=== PATIENT | male | born 1935 | race Caucasian/White ===

== ENCOUNTER → 2018-07-06 10:05 | Outpatient (CLI) | payer OTHER, SELFPAY ==
[2018-07-06 11:31] LABS: BUN Creatinine Ratio 18.2 (6-22); Blood Urea Nitrogen 20 mg/dL (9-20); Calcium 8.4 mg/dL (8.4-10.2); Carbon Dioxide 31 mmol/L (22-32); Chloride 99 mmol/L (98-107); Estimated Glomerular Filt Rate > 60.0 mL/min (>60); Glucose 104 mg/dL (80-110); HEMOLYSIS < 15 (0-50); Sodium 137 mmol/L (137-145)
== END ==
PROVIDERS: PCP Internal Medicine; Visit Provider Internal Medicine
DX: I10 Essential (primary) hypertension (principal)
CPT/HCPCS: 36415; 80048

== ENCOUNTER → 2018-07-19 17:10 | Outpatient (CLI) | payer OTHER, SELFPAY | PROVIDERS: PCP Internal Medicine; Visit Provider Physician Assistant | DX: R52 Pain, unspecified (principal) | CPT/HCPCS: 87086 ==

== ENCOUNTER 2018-07-19 17:36 | Observation (INO) | payer OTHER, SELFPAY ==
[2018-07-19 18:29] VITALS: BP 118/67; PULSE 62; RESP 22; TEMP 36.8; O2SAT 88; BMI 30.2
--- NOTE | 2018-07-19 18:33 | DI.RAD.S_ITS ---
PROCEDURE: XR CHEST 1V INDICATIONS: suspected sepsis TECHNIQUE: One view of the chest was acquired. COMPARISON: [facility], CHEST 1 VIEW, 01/19/2018, 15:28. [facility], CHEST 1 VIEW, 01/23/2018, 13:41. FINDINGS: Surgical changes and devices: There is a cardiac pacemaker in expected position. The most superior is no wire is fractured, but unchanged. Lungs and pleura: Chronic interstitial eminence bilaterally, unchanged. No pleural effusions or pneumothorax. Lungs are clear. Mediastinum: Mediastinal contours appear normal. Heart size is mildly increased. Bones and chest wall: No suspicious bony lesions. Overlying soft tissues appear unremarkable. Multiple compression fractures in lower thoracic spine with Vertebroplasties. IMPRESSION: 1. Chronic interstitial prominence appears unchanged. No focal consolidation or pleural effusion. Dictated by: Joyce Mosqueda M.D. on 07/19/2018 at 18:53 Approved by: Joyce Mosqueda M.D. on 07/19/2018 at 18:54
--- NOTE | 2018-07-19 18:38 | ED_ITS ---
HPI - Abdominal Pain General Chief Complaint: Abdominal Pain Stated Complaint: SENT BY WALK IN TO RULL OUT SEPSIS Time Seen by Provider: 07/19/18 18:38 Source: patient Mode of arrival: ambulatory Limitations: no limitations History of Present Illness MD complaint: abdominal pain Onset (ago): day(s) (1) Pain Consistency: constant Location: diffuse Severity: moderate Quality: cramping Radiation: none Migration to: no migration Relieving factors: nothing Exacerbating factors: nothing Context: other Associated symptoms: nausea and other Related Data Home Medications Medication Instructions Recorded Confirmed silodosin [Rapaflo] 4 mg PO HS #0 12/04/11 07/19/18 morphine [MS Contin] 30 mg PO BID #0 09/23/16 07/19/18 hydrocodone-acetaminophen [Granby] 1 - 2 tab PO Q4HP PRN #0 01/15/17 07/19/18 quetiapine 12.5 - 25 mg PO HS #0 01/18/18 07/19/18 albuterol sulfate [Ventolin HFA] 2 puff INH Q6HP PRN #0 01/19/18 07/19/18 aspirin 81 mg PO QDAY #0 01/19/18 07/19/18 potassium chloride 10 meq PO QDAY #0 01/19/18 07/19/18 carvedilol 6.25 mg PO BID 07/19/18 07/19/18 donepezil 10 mg PO BEDTIME 07/19/18 07/19/18 torsemide 20 mg tablet 20 mg PO DAILY 07/19/18 07/19/18 Previous Rx's Medication Instructions Recorded omeprazole 20 mg PO BID #60 09/28/11 nitroglycerin [Nitrostat] 0.4 mg SUBLINGUAL PRN #1 06/02/13 albuterol sulfate 3 ml INH Q2HP PRN #120 packet 01/24/18 prednisone 60 mg PO QDAY #100 tab 01/24/18 Allergies Allergy/AdvReac Type Severity Reaction Status Date / Time diclofenac [DICLOFENAC] Allergy Severe gi bleed Verified 07/19/18 19:16 lovastatin [LOVASTATIN] Allergy Severe HIVES AND Verified 07/19/18 19:16 FEVER terazosin [TERAZOSIN] Allergy Severe low blood Verified 07/19/18 19:16 pressure atorvastatin [ATORVASTATIN] Allergy Unknown Verified 07/19/18 19:16 rosuvastatin [ROSUVASTATIN] Allergy Unknown Verified 07/19/18 19:16 Review of Systems Review of Systems All systems reviewed & are unremarkable except as noted in HPI and below Constitutional Denies chills, Denies fever(s), Denies lethargy and Denies weakness Eyes Denies change in vision, Denies eye discharge, Denies irritation and Denies loss of vision ENT Ears, Nose, Mouth, and Throat: Denies change in voice, Denies neck pain and Denies sore throat Cardiovascular Denies chest pain, Denies irregular heart rhythm, Denies lightheadedness, Denies palpitations, Denies dyspnea, Denies dyspnea on exertion and Denies orthopnea Respiratory Denies cough, Denies dyspnea, Denies dyspnea on exertion and Denies wheezing Gastrointestinal Gastrointestinal: Reports abdominal pain, Denies change in bowel habits, Denies diarrhea, Reports nausea and Denies vomiting Genitourinary Denies hematuria, Denies flank pain, Denies urinary incontinence and Denies urinary urgency Musculoskeletal Denies neck pain Integumentary/Breasts Denies pruritus, Denies erythema, Denies rash and Denies wounds Neurologic Denies confusion, Denies loss of vision and Denies weakness Psychiatric Denies anxiety, Denies confusion, Denies depression, Denies homicidal ideation and Denies suicidal ideation Endocrine Denies palpitations Hematologic/Lymphatic Denies easy bruising Allergic/Immunologic Denies wheezing [facility] Medical History Pancreatitis, acute (Acute) Compression fracture of thoracic vertebra (Acute) Intractable back pain (Acute) COPD (chronic obstructive pulmonary disease) (Acute) Abdominal pain (Acute) Pneumonia (Acute) CHF (congestive heart failure) (Acute) Respiratory failure with hypoxia (Acute) Surgical History No pertinent past surgical history (Acute) Social History household members: spouse Smoking Status: Former smoker Exam Initial Vital Signs Initial Vital Signs: Vital Signs Temperature 98.3 F 07/19/18 18:29 Pulse Rate 62 07/19/18 18:29 Respiratory Rate 22 07/19/18 18:29 Blood Pressure 118/67 07/19/18 18:29 Pulse Oximetry 88 L 07/19/18 18:29 Const General: cooperative and well developed Nutritional Appearance: well nourished Orientation: alert, awake, oriented x3 and not confused [facility] Head: normocephalic and atraumatic Ears: external ears normal Nose: external nose normal and No nasal discharge Face and sinus: face symmetric and No dry mucous membranes Mouth: oral mucosae normal and moist mucous membranes Eyes General: appearance normal, both eyes and all related structures Eyelids: eyelids normal Conjunctivae: conjunctivae normal Sclera: sclerae normal Pupils: PERRL EOM: EOM intact bilaterally Neck Neck: normal visual inspection, trachea midline, No lymphadenopathy, No midline deformity and No JVD Lymphatic: No lymphedema Chest Chest: normal inspection of the chest Resp Effort & Inspection: normal respiratory effort, able to speak in complete sentences, no respiratory distress and no use of accessory muscles Auscultation: clear to auscultation bilaterally, no rales, no rhonchi and no wheezes Cardio Rate: regular rate Rhythm: regular rhythm Heart Sounds: no click, no gallops, no murmurs and no rubs Pulses: normal peripheral pulses GI Inspection: non-distended Palpation: soft, no hepatosplenomegaly, No guarding, No pulsatile mass and tender (moderate diffuse) Auscultation: normal bowel sounds Back/Spine/Pelvis Back: No CVA tenderness Cervical Spine: cervical ROM normal and No pain with cervical ROM Thoracic/Lumbar Spine: thoracic and lumbar spine normal to inspection Skin General: no rashes or lesions noted, No jaundice and No petechiae Neuro General: alert, oriented x3, gait normal and no focal motor deficits Speech: speech normal Extrem General: full ROM, no clubbing, cyanosis or edema, no pedal edema and no calf tenderness Psych Appearance: well kempt Mental Status: mental status grossly normal Attitude: cooperative Thought Content: normal and suicidality Judgment: judgment good Course Hospital Course: The patient was worked up for his abdominal pain, with labs, urinalysis, chest x -ray, and CT of the abdomen and pelvis. Patient's CT was unremarkable, but his lactate was elevated at 3.2 and his pro calcitonin was also elevated. I did feel the patient should be admitted to the hospital, though I was not sure what the source of his sepsis might be. He was started on broad-spectrum antibiotics , and I did discuss his case with Dr. Paul who was on-call for Internal Medicine. Orders Ordered: Discontinued Medications Acetaminophen (Tylenol) 650 mg PO Q6H PRN PRN Reason: As Needed for Fever/Mild Pain Last Admin: 07/20/18 08:44 Dose: 650 mg Hydrocodone Bitart/Acetaminophen (Granby 5/325) 1 tab PO Q4H PRN PRN Reason: Pain (Scale Score 1-3) Albuterol (Ventolin Hfa) 2 puff INH Q6H PRN PRN Reason: Shortness Of Breath Albuterol (Ventolin) 2.5 mg INH Q2H PRN PRN Reason: Shortness Of Breath Or Wheezing Aspirin (Aspirin Ec) 81 mg PO DAILY [facility] Carvedilol (Coreg) 6.25 mg PO BID [facility] Docusate Sodium (Colace) 200 mg PO BID [facility] Last Admin: 07/20/18 08:46 Dose: 200 mg Donepezil HCl (Aricept) 10 mg PO BEDTIME [facility] Enoxaparin Sodium (Lovenox) 30 mg SUBCUT DAILY [facility] Last Admin: 07/20/18 10:36 Dose: 30 mg Sodium Chloride (Normal Saline 0.9%) 1,000 mls @ 1,000 mls/hr IV BOLUS ONE Stop: 07/19/18 19:31 Last Infusion: 07/19/18 22:14 Dose: 0 mls/hr Infusion: 07/19/18 19:23 Dose: 500 mls/hr Admin: 07/19/18 19:08 Dose: 1,000 mls/hr Sodium Chloride (Normal Saline 0.9%) 1,000 mls @ 1,000 mls/hr IV BOLUS ONE Stop: 07/19/18 23:03 Last Infusion: 07/20/18 08:40 Dose: 0 mls/hr Admin: 07/19/18 22:45 Dose: 1,000 mls/hr Piperacillin/Tazobactam/Dextrose (Zosyn) 3.375 gm in 50 mls @ 100 mls/hr IV Q8H [facility] Stop: 07/20/18 00:00 Last Infusion: 07/19/18 23:27 Dose: 0 mls/hr Admin: 07/19/18 22:39 Dose: 100 mls/hr Vancomycin HCl/Dextrose (Vancomycin) 1,000 mg in 200 mls @ 200 mls/hr IV NOW ONE Stop: 07/19/18 23:15 Last Infusion: 07/20/18 09:35 Dose: 0 mls/hr Admin: 07/19/18 22:38 Dose: 200 mls/hr Sodium Chloride (Normal Saline 0.9%) 1,000 mls @ 125 mls/hr IV CONT [facility] Last Admin: 07/20/18 08:37 Dose: 125 mls/hr Infusion: 07/20/18 08:00 Dose: 125 mls/hr Admin: 07/20/18 00:00 Dose: 125 mls/hr Morphine Sulfate (Ms Contin) 30 mg PO BID [facility] Last Admin: 07/20/18 12:04 Dose: 30 mg Nitroglycerin (Nitrostat) 0.4 mg SL PRN [facility] Last Admin: 07/20/18 12:00 Dose: Not Given Ondansetron HCl (Zofran) 4 mg IV Q4H PRN PRN Reason: Nausea And Vomiting Pantoprazole Sodium (Protonix) 20 mg PO BID [facility] Polyethylene Glycol (Miralax) 17 gm PO QID [facility] Last Admin: 07/20/18 12:36 Dose: 17 gm Admin: 07/20/18 08:46 Dose: 17 gm Potassium Chloride (Klor-Con M10) 10 meq PO DAILY [facility] Prednisone (Deltasone) 60 mg PO DAILY [facility] Quetiapine Fumarate (Seroquel) 25 mg PO BEDTIME [facility] Sennosides (Senna) 17.2 mg PO BID [facility] Last Admin: 07/20/18 08:41 Dose: 17.2 mg Silodosin (Rapaflo) 4 mg PO BEDTIME [facility] Torsemide (Demadex) 20 mg PO DAILY [facility] Vital Signs - 8 hr 07/19/18 18:29 Temperature 98.3 F Pulse Rate 62 Respiratory Rate 22 Blood Pressure 118/67 Pulse Oximetry 88 L MDM - Abdominal Pain Medical Records Attestation: I reviewed the patient's medical records. Lab Data Attestation: I reviewed the patient's lab results. Result diagrams: 07/19/18 18:16 07/19/18 18:16 Lab Results 07/19/18 07/19/18 07/19/18 Range/Units 18:16 18:16 18:16 WBC 11.3 H (4.5-11.0) X10^3/uL RBC 4.54 (4.5-5.9) X10^6/uL Hgb 13.3 L (13.5-17.5) g/dL Hct 39.2 L (41-53) % MCV 86.4 (80-100) fL MCH 29.3 (26-34) PG MCHC 33.9 (30-36) % RDW 16.5 H (11.6-14.8) % Plt Count 157 (150-400) X10^3/uL Neut % (Auto) 86.1 H (50-75) % Lymph % (Auto) 5.8 L (25-40) % Bradley % (Auto) 7.1 (3-14) % Eos % (Auto) 0.6 L (2-4) % Baso % (Auto) 0.4 (0-2) % Neut # (Auto) 9700 H (3936-0757) /uL PT 12.2 (10.1-12.7) SECONDS INR 1.1 (0.9-1.3) APTT 32 (26.4-36.2) SECONDS Sodium (137-145) mmol/L Potassium (3.4-5.1) mmol/L Chloride (98-107) mmol/L Carbon Dioxide (22-32) mmol/L BUN (9-20) mg/dL Creatinine (0.66-1.25) mg/dL Estimated GFR (>60) mL/min BUN/Creatinine Ratio (6-22) Glucose (80-110) mg/dL Lactate (0.7-2.1) mmol/L Calcium (8.4-10.2) mg/dL Total Bilirubin (0.2-1.3) mg/dL AST (17-59) IU/L ALT (21-72) IU/L Alkaline Phosphatase (38-126) U/L Total Protein (6.3-8.2) g/dL Albumin (3.5-5.0) g/dL Globulin (1.7-4.1) g/dL Albumin/Globulin Ratio (1.0-2.8) Lipase (23-300) U/L Procalcitonin 0.95 H (<0.5) ng/mL Influenza A & B (PCR) (Negative) 07/19/18 07/19/18 07/19/18 Range/Units 18:16 18:16 21:50 WBC (4.5-11.0) X10^3/uL RBC (4.5-5.9) X10^6/uL Hgb (13.5-17.5) g/dL Hct (41-53) % MCV (80-100) fL MCH (26-34) PG MCHC (30-36) % RDW (11.6-14.8) % Plt Count (150-400) X10^3/uL Neut % (Auto) (50-75) % Lymph % (Auto) (25-40) % Bradley % (Auto) (3-14) % Eos % (Auto) (2-4) % Baso % (Auto) (0-2) % Neut # (Auto) (4976-5784) /uL PT (10.1-12.7) SECONDS INR (0.9-1.3) APTT (26.4-36.2) SECONDS Sodium 141 (137-145) mmol/L Potassium 4.6 (3.4-5.1) mmol/L Chloride 94 L (98-107) mmol/L Carbon Dioxide 33 H (22-32) mmol/L BUN 48 H (9-20) mg/dL Creatinine 2.30 H (0.66-1.25) mg/dL Estimated GFR 27.4 L (>60) mL/min BUN/Creatinine Ratio 20.9 (6-22) Glucose 151 H (80-110) mg/dL Lactate 3.2 H (0.7-2.1) mmol/L Calcium 9.3 (8.4-10.2) mg/dL Total Bilirubin 2.4 H (0.2-1.3) mg/dL AST 26 (17-59) IU/L ALT 17 L (21-72) IU/L Alkaline Phosphatase 63 (38-126) U/L Total Protein 7.1 (6.3-8.2) g/dL Albumin 4.0 (3.5-5.0) g/dL Globulin 3.1 (1.7-4.1) g/dL Albumin/Globulin Ratio 1.3 (1.0-2.8) Lipase 80 (23-300) U/L Procalcitonin (<0.5) ng/mL Influenza A & B (PCR) Negative (Negative) 07/19/18 07/20/18 Range/Units 22:55 04:10 WBC (4.5-11.0) X10^3/uL RBC (4.5-5.9) X10^6/uL Hgb (13.5-17.5) g/dL Hct (41-53) % MCV (80-100) fL MCH (26-34) PG MCHC (30-36) % RDW (11.6-14.8) % Plt Count (150-400) X10^3/uL Neut % (Auto) (50-75) % Lymph % (Auto) (25-40) % Bradley % (Auto) (3-14) % Eos % (Auto) (2-4) % Baso % (Auto) (0-2) % Neut # (Auto) (0079-6380) /uL PT (10.1-12.7) SECONDS INR (0.9-1.3) APTT (26.4-36.2) SECONDS Sodium (137-145) mmol/L Potassium (3.4-5.1) mmol/L Chloride (98-107) mmol/L Carbon Dioxide (22-32) mmol/L BUN (9-20) mg/dL Creatinine (0.66-1.25) mg/dL Estimated GFR (>60) mL/min BUN/Creatinine Ratio (6-22) Glucose (80-110) mg/dL Lactate 1.2 1.1 (0.7-2.1) mmol/L Calcium (8.4-10.2) mg/dL Total Bilirubin (0.2-1.3) mg/dL AST (17-59) IU/L ALT (21-72) IU/L Alkaline Phosphatase (38-126) U/L Total Protein (6.3-8.2) g/dL Albumin (3.5-5.0) g/dL Globulin (1.7-4.1) g/dL Albumin/Globulin Ratio (1.0-2.8) Lipase (23-300) U/L Procalcitonin (<0.5) ng/mL Influenza A & B (PCR) (Negative) Point of care testing: Urine Dip Bedside Urine Glucose Negative Bedside Urine Bilirubin - Negative Bedside Urine Ketone - Negative Urine Specific Orange 1.015 Bedside Urine Occult Blood - Negative Bedside Urine pH 5.5 Bedside Urine Protein - Negative Bedside Urine Urobilinogen - Negative Bedside Urine Nitrite - Negative Bedside Urine Leukocytes - Negative Esterase Imaging Data CT scan - abdomen: Attestation: I personally reviewed and interpreted this imaging study as follows: My impression: No acute disease. Radiologist's impression: PROCEDURE: CT ABDOMEN PELVIS WO CON INDICATIONS: abdominal pain L side TECHNIQUE: Noncontrast 5 mm thick sections acquired from the diaphragms to the symphysis. 5 mm coronal and sagittal reformats were then performed. For radiation dose reduction, the following was used: automated exposure control, adjustment of mA and/or kV according to patient size. COMPARISON: [facility], CR, XR CHEST 1V, 07/19/2018, 18:38. [facility], CR, CHEST 1 VIEW, 01/23/2018, 13:41. [facility], CT, ABDOMEN/PELVIS WITH CONTRAST, 07/18/2016, 14:51. FINDINGS: Image quality: Excellent. ABDOMEN: Lung bases: Lung bases are clear. Heart size is mildly increased. There is a cardiac pacemaker. Small hiatal hernia. Solid organs: Calcific density seen in the liver are consistent with old granulomas. Liver is normal in size. Gallbladder is surgically absent. Pancreas is normal in contours. Spleen is normal in size. No adrenal nodules. Kidneys are normal in size, without hydronephrosis or nephrolithiasis. Peritoneum and bowel: Stomach and small intestines are normal in caliber. There are numerous colonic diverticula. No evidence for active diverticulitis. Appendix is normal. No free fluid or air. Nodes and vessels: No retroperitoneal or mesenteric adenopathy by size criteria. Aorta and inferior vena cava are normal in caliber. Moderate aortic and iliac artery atherosclerosis. Miscellaneous: No ventral hernias. PELVIS: Genitourinary: Bladder wall thickness is normal. Enlarged prostate. Miscellaneous: No inguinal hernias or adenopathy. Bones: No suspicious bony lesions. Multiple compression fractures seen the lower lumbar spine. Methylmethacrylate related to vertebroplasty at T7, T8, T11 and T12. IMPRESSION: 1. Diverticulosis without acute diverticulitis. 2. Small hiatal hernia. 3. Calcified granulomas in liver. 4. Moderate atherosclerosis. 5. Mild cardiomegaly. 6. Enlarged prostate. 7. Multiple compression fractures in lower thoracic spine with vertebroplasty. Dictated by: Joyce Mosqueda M.D. on 07/19/2018 at 20:43 Approved by: Joyce Mosqueda M.D. on 07/19/2018 at 21:06 Chest x-ray: Attestation: I personally reviewed and interpreted this imaging study as follows: My impression: Negative Radiologist's impression: PROCEDURE: XR CHEST 1V INDICATIONS: suspected sepsis TECHNIQUE: One view of the chest was acquired. COMPARISON: [facility], CHEST 1 VIEW, 01/19/2018, 15:28. [facility], CHEST 1 VIEW, 01/23/2018, 13:41. FINDINGS: Surgical changes and devices: There is a cardiac pacemaker in expected position. The most superior is no wire is fractured, but unchanged. Lungs and pleura: Chronic interstitial eminence bilaterally, unchanged. No pleural effusions or pneumothorax. Lungs are clear. Mediastinum: Mediastinal contours appear normal. Heart size is mildly increased. Bones and chest wall: No suspicious bony lesions. Overlying soft tissues appear unremarkable. Multiple compression fractures in lower thoracic spine with Vertebroplasties. IMPRESSION: 1. Chronic interstitial prominence appears unchanged. No focal consolidation or pleural effusion. Dictated by: Joyce Mosqueda M.D. on 07/19/2018 at 18:53 Approved by: Joyce Mosqueda M.D. on 07/19/2018 at 18:54 Discharge Plan Departure Patient Disposition: Admitted As Inpatient Clinical Impression: Sepsis associated hypotension Discharge Date/Time: 07/20/18 00:05 Interventions: ED Discharge Assessment Last Done: 07/20/18 00:06 Admit Date/Time: 07/19/18 22:45 Admit Provider: Edwin Paul
[2018-07-19 18:59] LABS: Add Manual Diff / Slide Review NO; Basophils Percent Auto 0.4 % (0-2); Eosinophils Percent Auto 0.6 % (2-4); Hematocrit 39.2 % (41-53); Hemoglobin 13.3 g/dL (13.5-17.5); Lymphocytes Percent Auto 5.8 % (25-40); Mean Corpuscular HGB Conc 33.9 % (30-36); Mean Corpuscular Hemoglobin 29.3 PG (26-34); Mean Corpuscular Volume 86.4 fL (80-100); Monocytes Percent Auto 7.1 % (3-14); Neutrophils Absolute Auto 9700 /uL (3000-5900); Neutrophils Percent Auto 86.1 % (50-75); Platelet Count 157 X10^3/uL (150-400); Red Blood Cell Count 4.54 X10^6/uL (4.5-5.9); Red Cell Distribution Width 16.5 % (11.6-14.8); White Blood Cell Count 11.3 X10^3/uL (4.5-11.0)
[2018-07-19 19:00] LABS: INR 1.1 (0.9-1.3); Prothrombin Time 12.2 SECONDS (10.1-12.7)
[2018-07-19 19:03] LABS: PTT Partial Thromboplastin Tim 32 SECONDS (26.4-36.2)
[2018-07-19 19:04] LABS: Lactate (Lactic Acid) 3.2 mmol/L (0.7-2.1)
[2018-07-19 19:08] LABS: Alanine Aminotransferase 17 IU/L (21-72); Albumin Globulin Ratio 1.3 (1.0-2.8); Alkaline Phosphatase 63 U/L (38-126); Aspartate Aminotransferase 26 IU/L (17-59); BUN Creatinine Ratio 20.9 (6-22); Bilirubin Total 2.4 mg/dL (0.2-1.3); Blood Urea Nitrogen 48 mg/dL (9-20); Calcium 9.3 mg/dL (8.4-10.2); Carbon Dioxide 33 mmol/L (22-32); Chloride 94 mmol/L (98-107); Estimated Glomerular Filt Rate 27.4 mL/min (>60); Globulin 3.1 g/dL (1.7-4.1); Glucose 151 mg/dL (80-110); HEMOLYSIS < 15 (0-50); Lipase 80 U/L (23-300); Potassium 4.6 mmol/L (3.4-5.1); Sodium 141 mmol/L (137-145); Total Protein 7.1 g/dL (6.3-8.2)
[2018-07-19] MEDS: SODIUM CHLORIDE 0.9% 1,000 ML 1000 ML IV ×2 (19:08→22:45)
[2018-07-19 19:15] VITALS: BP 83/57; PULSE 63; RESP 22; O2SAT 97
[2018-07-19 19:24] LABS: Procalcitonin 0.95 ng/mL (<0.5)
--- NOTE | 2018-07-19 20:04 | DI.CT.S_ITS ---
PROCEDURE: CT ABDOMEN PELVIS WO CON INDICATIONS: abdominal pain L side TECHNIQUE: Noncontrast 5 mm thick sections acquired from the diaphragms to the symphysis. 5 mm coronal and sagittal reformats were then performed. For radiation dose reduction, the following was used: automated exposure control, adjustment of mA and/or kV according to patient size. COMPARISON: [facility], CR, XR CHEST 1V, 07/19/2018, 18:38. [facility], CR, CHEST 1 VIEW, 01/23/2018, 13:41. [facility], CT, ABDOMEN/PELVIS WITH CONTRAST, 07/18/2016, 14:51. FINDINGS: Image quality: Excellent. ABDOMEN: Lung bases: Lung bases are clear. Heart size is mildly increased. There is a cardiac pacemaker. Small hiatal hernia. Solid organs: Calcific density seen in the liver are consistent with old granulomas. Liver is normal in size. Gallbladder is surgically absent. Pancreas is normal in contours. Spleen is normal in size. No adrenal nodules. Kidneys are normal in size, without hydronephrosis or nephrolithiasis. Peritoneum and bowel: Stomach and small intestines are normal in caliber. There are numerous colonic diverticula. No evidence for active diverticulitis. Appendix is normal. No free fluid or air. Nodes and vessels: No retroperitoneal or mesenteric adenopathy by size criteria. Aorta and inferior vena cava are normal in caliber. Moderate aortic and iliac artery atherosclerosis. Miscellaneous: No ventral hernias. PELVIS: Genitourinary: Bladder wall thickness is normal. Enlarged prostate. Miscellaneous: No inguinal hernias or adenopathy. Bones: No suspicious bony lesions. Multiple compression fractures seen the lower lumbar spine. Methylmethacrylate related to vertebroplasty at T7, T8, T11 and T12. IMPRESSION: 1. Diverticulosis without acute diverticulitis. 2. Small hiatal hernia. 3. Calcified granulomas in liver. 4. Moderate atherosclerosis. 5. Mild cardiomegaly. 6. Enlarged prostate. 7. Multiple compression fractures in lower thoracic spine with vertebroplasty. Dictated by: Joyce Mosqueda M.D. on 07/19/2018 at 20:43 Approved by: Joyce Mosqueda M.D. on 07/19/2018 at 21:06
[2018-07-19 20:20] VITALS: BP 117/63; PULSE 67; RESP 12; O2SAT 94
[2018-07-19 21:15] VITALS: BP 95/53; PULSE 64; RESP 13; O2SAT 96
[2018-07-19 21:49] VITALS: BP 94/52; PULSE 61; RESP 12; O2SAT 94
[2018-07-19 22:21] LABS: Influenza A and B by PCR Rapid Negative (Negative)
[2018-07-19 22:30] VITALS: BP 98/62; PULSE 61; RESP 12; O2SAT 96
[2018-07-19] MEDS: VANCOMYCIN 1,000 MG/200 ML FROZ.PIGGY 200 MG IV (22:38)
[2018-07-19] MEDS: PIPERACILLIN-TAZO 3.375 GM/50 ML FROZ.PIGGY IV (22:39)
[2018-07-19 22:55] LABS: Reflexed Lactate in 2 Hours Y
[2018-07-19 23:29] LABS: Lactate 2HR (Lactic Acid Rflx) 1.2 mmol/L (0.7-2.1)
[2018-07-20] VITALS (8 sets, daily range): BP systolic 95–121; BP diastolic 57–70; PULSE 61–76; RESP 14–19; TEMP 36.3–36.8; O2SAT 93–97; BMI 28.4
--- NOTE | 2018-07-20 | DI.RAD.S_ITS ---
PROCEDURE: XR ACUTE ABDOMEN SERIES INDICATIONS: suspect obstipation TECHNIQUE: One view chest and two views of the abdomen were acquired. COMPARISON: [facility], L-SPINE 2-3 VIEWS, 01/27/2017, 9:19. [facility], ABDOMEN ACUTE SERIES, 09/26/2013, 6:21. [facility], ABDOMEN ACUTE SERIES, 09/25/2013, 8:58. [facility], ABDOMEN ACUTE SERIES, 09/24/2013, 7:21. 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 What appears to be kyphoplasty bone cement overlies the thoracolumbar junction involving T12. Probable cholecystectomy given the surgical clips at the right upper quadrant. Chest: Lungs are clear. Heart size is normal. No pleural effusions. No pneumoperitoneum. Abdomen: Bowel gas pattern is abnormal with gas prominence involving the colon on the right and through the transverse colon and there is relatively prominent colonic lesion in the descending colon and sigmoid area. No suspicious calcifications. Visualized solid organ contours appear normal. Bones: No suspicious bony lesions. IMPRESSION: Left-sided colonic obstipation, gas prominence of the colon loops at the transverse colon and to the right of midline. No definite small bowel gas dilatation is found. Postsurgical changes as noted. Dictated by: Hans Bolaños M.D. on 07/20/2018 at 8:20 Approved by: Hans Bolaños M.D. on 07/20/2018 at 8:22
[2018-07-20 04:31] LABS: Lactate (Lactic Acid) 1.1 mmol/L (0.7-2.1)
--- NOTE | 2018-07-20 05:31 | PC.NURSE ---
pt a&Ox1. arrived via stretcher. denied pain, nausea or sob. abdomen is firm and distended. btx4 hypoactive. IVF NS @125. at bedside. call light in reach. bed alarm active.
--- NOTE | 2018-07-20 07:57 | PM.HP.1 ---
History of Present Illness Date Patient Seen: 07/20/18 Time Patient Seen: 06:57 Chief complaint: SENT BY WALK IN TO RULL OUT SEPSIS Narrative: PATIENT IS A VERY PLEASANT 83 YEARS OF AGE MALE WITH S BROUGHT TO THE EMERGENCY ROOM WITH HIS . PATIENT HAVING A SOMEWHAT DIFFUSE TYPE ABDOMINAL PAIN FOR THE PAST 3 DAYS. NO RECENT FEVERS AND CHILLS NO COUGH NO DIARRHEA. PATIENT NORMALLY TAKES QUITE A BIT OF NARCOTIC FOR CHRONIC PAIN SYNDROME. PATIENT WITH COMPRESSION FRACTURES OF THE SPINE. PATIENT TAKES MS CONTIN 50 MG TWICE DAILY AND NORCO EXTRA-STRENGTH 3-4 TIMES PER DAY. THE NOTES THE PATIENT TENDS TO HAVE PROBLEMS WITH HIS BOWELS AND BOWEL MOVEMENTS. PATIENT ALSO NOTES PATIENT WITH HISTORY OF SMALL-BOWEL OBSTRUCTION. Patient History Comment: PAST MEDICAL HISTORY ALZHEIMER'S DEMENTIA CORONARY ARTERY BYPASS GRAFT AORTIC VALVE REPLACEMENT COPD SLEEP APNEA DIVERTICULITISCHRONIC PAIN SYNDROME Family & Social History Social History: household members spouse Prior Living Arrangements Apartment/Condo Safety & Behavioral: Feels Safe in Current Yes Environment Been Physically Hurt or No Threatened By a Person Suicidal Ideation Description None Suicide Plan Description No Plan Tobacco & Substance use: Smoking Status Former smoker alcohol intake frequency holiday/special occasion Substance Use Type does not use Comment: SOCIAL HISTORY TIMO LIVES WITH HIS . NONSMOKER NONALCOHOL ABUSER FAMILY HISTORY NOTES PATIENT HAS 2 BROTHERS 1 WITH DIABETES AND CORONARY ARTERY DISEASE AND THE OTHER WITH PERIPHERAL VASCULAR DISEASE Meds Home Medications Medication Instructions Recorded Confirmed Type omeprazole 20 mg PO BID #60 09/28/11 07/19/18 Rx silodosin [Rapaflo] 4 mg PO HS #0 12/04/11 07/19/18 History nitroglycerin [Nitrostat] 0.4 mg SUBLINGUAL PRN #1 06/02/13 07/19/18 Rx morphine [MS Contin] 30 mg PO BID #0 09/23/16 07/19/18 History hydrocodone-acetaminophen [[place]] 1 - 2 tab PO Q4HP PRN #0 01/15/17 07/19/18 History quetiapine 12.5 - 25 mg PO HS #0 01/18/18 07/19/18 History albuterol sulfate [Ventolin HFA] 2 puff INH Q6HP PRN #0 01/19/18 07/19/18 History aspirin 81 mg PO QDAY #0 01/19/18 07/19/18 History potassium chloride 10 meq PO QDAY #0 01/19/18 07/19/18 History albuterol sulfate 3 ml INH Q2HP PRN #120 packet 01/24/18 07/19/18 Rx prednisone 60 mg PO QDAY #100 tab 01/24/18 07/19/18 Rx carvedilol 6.25 mg PO BID 07/19/18 07/19/18 History donepezil 10 mg PO BEDTIME 07/19/18 07/19/18 History torsemide 20 mg tablet 20 mg PO DAILY 07/19/18 07/19/18 History Allergies Allergy/AdvReac Type Severity Reaction Status Date / Time diclofenac [DICLOFENAC] Allergy Severe gi bleed Verified 07/19/18 19:16 lovastatin [LOVASTATIN] Allergy Severe HIVES AND Verified 07/19/18 19:16 FEVER terazosin [TERAZOSIN] Allergy Severe low blood Verified 07/19/18 19:16 pressure atorvastatin [ATORVASTATIN] Allergy Unknown Verified 07/19/18 19:16 rosuvastatin [ROSUVASTATIN] Allergy Unknown Verified 07/19/18 19:16 Review of Systems Review of Systems A 10 POINT SYSTEM WAS REVIEWED WITH THE PATIENT AND HIS AT BEDSIDE WAS NEGATIVE EXCEPT FOR THE SYMPTOMS DESCRIBED. PATIENT WITH RECENT SOMEWHAT DIFFUSE TYPE ABDOMINAL PAINS FOR THE LAST FEW DAYS. NO RECENT FEVERS AND CHILLS NO COUGH NO DIARRHEA NO CONSTIPATION NOTED BY THE HOWEVER NOTES THAT IT IS HARD TO SAY ABOUT THE PATIENT'S BOWEL HABITS AND WITH REMOTE ACTUALLY BE CONSTIPATED. Exam Vital Signs (past 8 hours): - 07/20/18 00:00 07/20/18 00:06 07/20/18 04:24 Temperature 97.4 F L 97.7 F Pulse Rate 69 61 62 Respiratory Rate 18 18 Blood Pressure 121/70 95/58 L 95/57 L Pulse Oximetry 93 96 93 Oxygen Delivery Method Room Air Narrative Exam Narrative: GENERAL APPEARANCE PATIENT IS AWAKE AND ALERT AND JOVIAL MOOD PSYCHIATRIC PATIENT IS ORIENTED TO SELF ONLY. MOOD IS PLEASANT COOPERATIVE. AFFECT IS APPROPRIATE SKIN NO RASHES OR LESIONS NONJAUNDICED GOOD TURGOR EYES PUPILS ARE EQUAL ROUND AND REACTIVE TO LIGHT EARS NOSE AND THROAT HEARING GROSSLY INTACT NOSE SEPTUM TO MIDLINE NO BLEEDING NO OROPHARYNGEAL LESIONS NOTED RESPIRATORY GOOD AIRFLOW NO WHEEZES NO CRACKLES CARDIOVASCULAR REGULAR IN RATE AND RHYTHM NO MURMUR RUBS OR GALLOPS PMI NONDISPLACED PULSES +3 TO EXTREMITIES GASTROINTESTINAL IS SOMEWHAT DIFFUSE TENDERNESS TO PALPATION IN VARIOUS AREAS. NO SPECIFIC FOCAL AREA OF TENDERNESS ONLY. BOWEL SOUNDS ARE NOTED. NO GUARDING NEUROLOGIC NO FOCAL NEUROLOGIC CHANGES CRANIAL NERVES 2-12 GROSSLY INTACT LYMPHATICS NO LYMPHADENOPATHY TO NECK OR AXILLA MUSCULOSKELETAL NO ARTHRITIS NOTED ON EXAM 5/5 MOTOR STRENGTH NO CLUBBING RANGE OF MOTION GOOD Objective Labs Result Diagrams: 07/19/18 18:16 07/19/18 18:16 Labs: Laboratory Results - last 24 hr 07/19/18 07/19/18 07/19/18 18:16 18:16 18:16 WBC 11.3 H RBC 4.54 Hgb 13.3 L Hct 39.2 L MCV 86.4 MCH 29.3 MCHC 33.9 RDW 16.5 H Plt Count 157 Neut % (Auto) 86.1 H Lymph % (Auto) 5.8 L [place] % (Auto) 7.1 Eos % (Auto) 0.6 L Baso % (Auto) 0.4 Neut # (Auto) 9700 H PT 12.2 INR 1.1 APTT 32 Sodium Potassium Chloride Carbon Dioxide BUN Creatinine Estimated GFR BUN/Creatinine Ratio Glucose Lactate Calcium Total Bilirubin AST ALT Alkaline Phosphatase Total Protein Albumin Globulin Albumin/Globulin Ratio Lipase Procalcitonin 0.95 H Influenza A & B (PCR) 07/19/18 07/19/18 07/19/18 18:16 18:16 21:50 WBC RBC Hgb Hct MCV MCH MCHC RDW Plt Count Neut % (Auto) Lymph % (Auto) [place] % (Auto) Eos % (Auto) Baso % (Auto) Neut # (Auto) PT INR APTT Sodium 141 Potassium 4.6 Chloride 94 L Carbon Dioxide 33 H BUN 48 H Creatinine 2.30 H Estimated GFR 27.4 L BUN/Creatinine Ratio 20.9 Glucose 151 H Lactate 3.2 H Calcium 9.3 Total Bilirubin 2.4 H AST 26 ALT 17 L Alkaline Phosphatase 63 Total Protein 7.1 Albumin 4.0 Globulin 3.1 Albumin/Globulin Ratio 1.3 Lipase 80 Procalcitonin Influenza A & B (PCR) Negative 07/19/18 07/20/18 22:55 04:10 WBC RBC Hgb Hct MCV MCH MCHC RDW Plt Count Neut % (Auto) Lymph % (Auto) [place] % (Auto) Eos % (Auto) Baso % (Auto) Neut # (Auto) PT INR APTT Sodium Potassium Chloride Carbon Dioxide BUN Creatinine Estimated GFR BUN/Creatinine Ratio Glucose Lactate 1.2 1.1 Calcium Total Bilirubin AST ALT Alkaline Phosphatase Total Protein Albumin Globulin Albumin/Globulin Ratio Lipase Procalcitonin Influenza A & B (PCR) Assessment & Plan Plan: Assessment/Plan Narrative: 1. GENERALIZED ABDOMINAL PAIN I SUSPECT THIS MAY BE ACTUALLY OBSTIPATION. PATIENT ON QUITE A BIT OF NARCOTIC AND HOME SETTING. WILL OPTIMIZE BOWEL REGIMEN WITH MIRALAX Q.I.D. SENNA 17 G B.I.D. AND COLACE 200 MG B.I.D. UNTIL LOOSE STOOLING IS NOTED THREE-VIEW X-RAY OF ABDOMEN IS PENDING 2. HISTORY OF CORONARY ARTERY DISEASE CONTINUE HOME CARDIAC MEDS TOLERATED 3. SLEEP APNEA DISORDER NOTES PATIENT IS QUITE INTOLERANT OF THE CPAP MASK AND NONCOMPLIANT 4. 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 THIS CAN INCLUDE MEDICATIONS SUCH IBUPROFEN IN COMBINATION WITH OTHER MEDS INCLUDING LASIX FOR EXAMPLE. ALSO ANTICHOLINERGIC ACTIONS OF MORE COMMON KNOWN DRUGS SUCH BENADRYL SHOULD BE AVOIDED WELL. 5. HISTORY OF COPD CONTINUE INHALER AND RESPIRATORY MEDICATIONS TOLERATED DISCHARGE PLANNING I AM HOPEFUL PATIENT WILL RESPOND FAVORABLY TO THE AGGRESSIVE BOWEL REGIMEN. I REQUESTED A THREE-VIEW OF THE ABDOMEN TO LOOK AT THE SCHOOL [employer] NOW. PATIENT IS ADMITTED UNDER OBSERVATION. I DO NOT EXPECT MORE THAN 1 MIDNIGHT STAY. Time Spent With Patient Time with patient: Greater than 35 minutes (50 MIN)
[2018-07-20] MEDS: SODIUM CHLORIDE 0.9% 1,000 ML 125 ML IV ×2 (08:37)
[2018-07-20] MEDS: SENNOSIDES 8.6 MG TABLET 17.2 MG PO (08:41)
[2018-07-20] MEDS: ACETAMINOPHEN 325 MG TABLET 650 MG PO (08:44)
[2018-07-20] MEDS: DOCUSATE 100 MG CAPSULE 200 MG PO (08:46)
[2018-07-20] MEDS: POLYETHYLENE GLYCOL 3350 17 GM POWD.PACK PO ×2 (08:46→12:36)
[2018-07-20] MEDS: ENOXAPARIN 30 MG/0.3 ML SYRINGE SUBCUT (10:36)
[2018-07-20] MEDS: MORPHINE ER 30 MG TABLET PO (12:04)
--- NOTE | 2018-07-20 17:02 | PC.NURSE ---
PM Shift Came onto shift and patient was AO, pleasant and sitting up in chair. 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 is POA and was asking for case management or Dr. Johnson. Patient is currently observation and pt is unable to pay if kept on obs status. decided to take patient AMA. Dr. Johnson came into the room, was teary and stated, We just can't pay for this. After conversing with , decided to still leave AMA. AMA form was signed and placed in pt folder. IV removed from pt; tolerated well. Tele DC'ed. Patient changed into personal clothes and packed up. I asked pt if he wanted to leave, pt responded with, yes.
--- NOTE | 2018-07-20 17:09 | PC.NURSE ---
Patient completed AMA form, is packed up. IV's and tele removed. See nursing shift note.
--- NOTE | 2018-07-21 08:00 | CM.IDA ---
Discharge Planning/Care Management CM Discharge Assessment Start: 07/21/18 07:52 Freq: Status: Discharge Protocol: Document 07/21/18 07:53 GAY (Rec: 07/21/18 08:00 GAY [id number]) Discharge Planning Assessment Assigned Manager Architecture MARY Diop DPOA/Assigned Designee Name Lakia Franco, spouse Contact Information [phone], home work Advance Directives? No History Provided By Family Member Medical Record Prior Living Arrangements Apartment/Condo Household Members spouse Type of transporation used prior to Relies on Others admit Independent with ADL's No Is patient alert and oriented? No Needs Assistance With Bathing Eating Grooming Meal Prep Toileting Managing Medications Home Chores / Shopping Comment H/O HH, not current Comment All DME needed for safe transfers, bathing, ambulating , etc at home Comment Caregiver/cousin Bud has been providing caregiving for patient M-F when spouse is at work. Barriers to Discharge No Comment Pt went home w/spouse and caregiver last night, 9.. Discharge Plan Home Transportation Arrangement Family Referrals Initiated None needed Please Provide Date Initial DC 07/20/18 Assessment Was Performed
--- NOTE | 2018-07-21 18:34 | PM.DS.1 ---
History of Present Illness Chief complaint: SENT BY WALK IN TO RULL OUT SEPSIS Narrative: PATIENT IS A VERY PLEASANT 83 YEARS OF AGE MALE WITH S BROUGHT TO THE EMERGENCY ROOM WITH HIS . PATIENT HAVING A SOMEWHAT DIFFUSE TYPE ABDOMINAL PAIN FOR THE PAST 3 DAYS. NO RECENT FEVERS AND CHILLS NO COUGH NO DIARRHEA. PATIENT NORMALLY TAKES QUITE A BIT OF NARCOTIC FOR CHRONIC PAIN SYNDROME. PATIENT WITH COMPRESSION FRACTURES OF THE SPINE. PATIENT TAKES MS CONTIN 50 MG TWICE DAILY AND NORCO EXTRA-STRENGTH 3-4 TIMES PER DAY. THE NOTES THE PATIENT TENDS TO HAVE PROBLEMS WITH HIS BOWELS AND BOWEL MOVEMENTS. PATIENT ALSO NOTES PATIENT WITH HISTORY OF SMALL-BOWEL OBSTRUCTION. Discharge Providers Date of admission: 07/19/18 22:45 Primary care physician: Paul Lauren MD Discharge provider: Eduard Johnson MD Summary Discharge Diagnosis: 1. OBSTIPATION WITH DIFFUSE NONSPECIFIC ABDOMINAL PAIN AND DISCOMFORT 2. 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 3. HISTORY OF AORTIC VALVE REPLACEMENT 4. SLEEP APNEA DISORDER WITH NONCOMPLIANCE TO CPAP MASK USAGE 5. CHRONIC PAIN SYNDROME WITH RISK OF CONSTIPATION 6. HISTORY OF COPD 7. ALZHEIMER'S DEMENTIA Hospital Course: PATIENT IS A VERY PLEASANT 83 YEARS OF AGE MALE QUITE CLEVER AND WITTY. PATIENT WAS BROUGHT IN WITH HIS WHO IS IN A EMPLOYEE OF HOSPITAL A CT OF THE ABDOMEN PELVIS WAS DONE PART OF THE INITIAL WORKUP IN THE ER. NO CLEAR EXPLANATION DESCRIBED TO ME UPON ADMISSION TO THE HOSPITAL MEDICAL FLOOR. ONE ADMIT THE PATIENT TO HISTORY MY 1ST SUSPICION WAS PATIENT WAS FULL STOOL. I REQUESTED A THREE VIEW X-RAY OF THE ABDOMEN WHICH CLEARLY IDENTIFIED PATIENT WITH VERY GENEROUS AMOUNT OF STOOL ON THE LEFT SIDE OF THE COLON. I REQUESTED MIRALAX 17 G TO BE GIVEN Q.I.D. UNTIL LOOSE STOOLING NOTED ALONG WITH SENNA 17 G TO BE GIVEN B.I.D. UNTIL LOOSE STOOLING NOTED AND COLACE STOOL SOFTENER 200 MG B.I.D.. PATIENT WAS ADMITTED UNDER OBSERVATION STATUS. PATIENT DID NOT MEET CRITERIA FOR ADMISSION AN INPATIENT. THIS CAUSED CONSIDERABLE DISTRESS TO THE PATIENT'S WITH CONCERNS ABOUT THE FINANCIAL ASPECT OF PATIENT BEING ADMITTED UNDER OBSERVATION. THE PATIENT BEGAN HAVING MODEST AMOUNT OF STOOLING AND IT APPEARED MORE WAS FORTHCOMING. UNDER CIRCUMSTANCE DESCRIBED THE DECIDED TO HAVE THE PATIENT BE DISCHARGED AGAINST MEDICAL ADVISE. I MET WITH THE PATIENT AND HIS AT BEDSIDE BEFORE THEY LEFT THE HOSPITAL AND REVIEWED THE SIMPLE MEASURES THAT I PROVIDED TO GET THE PATIENT TO START STOOLING. I ALSO RECOMMENDED A WARM SOAPSUDS ENEMA TO BE PROVIDED WHICH MAY HELP EVACUATE THE DISTAL COLON. Status at Discharge Cognitive/behavioral status at discharge: PATIENT WITH ALZHEIMER'S DISEASE AND ORIENTED TO SELF ONLY BUT CERTAINLY A VERY PLEASANT AND JOLLY FELLOW. Functional status at discharge: independent ambulation Overall status at discharge: patient is progressing back to baseline Time Spent with Patient Greater than 30 minutes (35 MIN. PLEASE NOTE NO CHARGE TO THE PATIENT FOR THIS DISCHARGE.) Exam Vital Signs (past 8 hours): Oxygen Delivery Method Room Air Oxygen Flow Rate 0 Narrative Exam Narrative: PATIENT AWAKE AND ALERT NO APPARENT DISTRESS\ RESPIRATORY FAIRLY CLEAR TO AUSCULTATION NO WHEEZES NO CRACKLES CARDIOVASCULAR REGULAR RATE AND RHYTHM MURMUR RUBS OR GALLOPS GI IS BENIGN SOFT NONTENDER Objective Labs Result Diagrams: 07/19/18 18:16 07/19/18 18:16 Discharge Plan Discharge Plan Patient Disposition: Home Discharge comment: PATIENT'S IS DISCHARGING THE PATIENT AGAINST MEDICAL ADVICE. IS CONFIDENT THAT SHE CAN CONTINUE THE BOWEL REGIMEN IN THE HOME SETTING. SHE WILL ALSO PROVIDE THE ENEMA WELL. I AM ALSO CONFIDENT THE PATIENT'S CAN PROVIDE THE SERVICES TO THE PATIENT IN THE HOME SETTING Discharge Med Rec/Prescriptions Prescriptions: Continue torsemide 20 mg tablet 20 mg PO DAILY RF: 0 omeprazole 20 MG tablet,delayed release (DR/EC) 20 mg PO BID Qty: 60 RF: 3 silodosin [Rapaflo] 4 MG capsule 4 mg PO HS Qty: 0 RF: 0 nitroglycerin [Nitrostat] 0.4 MG tablet, sublingual 0.4 mg Sublingual PRN Qty: 1 RF: 0 morphine [MS Contin] 30 MG tablet extended release 30 mg PO BID Qty: 0 RF: 0 hydrocodone-acetaminophen [[place]] 5 MG/325 MG tablet 1 - 2 tab PO Q4HP PRN (Reason: Pain (Scale Score 1-3)) Qty: 0 RF: 0 quetiapine 25 MG tablet 12.5 - 25 mg PO HS Qty: 0 RF: 0 aspirin 81 MG tablet,delayed release (DR/EC) 81 mg PO QDAY Qty: 0 RF: 0 albuterol sulfate [Ventolin HFA] 90 MCG/PUFF HFA aerosol inhaler 2 puff INH Q6HP PRN (Reason: Shortness Of Breath) Qty: 0 RF: 0 potassium chloride 10 MEQ tablet extended release 10 meq PO QDAY Qty: 0 RF: 0 albuterol sulfate 2.5 MG/3 ML solution for nebulization 3 ml INH Q2HP PRNQty: 120 RF: 0 prednisone 10 MG tablet 60 mg PO QDAY Qty: 100 RF: 0 donepezil 10 mg Tablet,Disintegrating 10 mg PO BEDTIME RF: 0 carvedilol 6.25 mg Tablet 6.25 mg PO BID RF: 0 Follow up/Referrals: Paul Lauren MD [Primary Care Provider] - Provider Discharge Instructions Diet: Diet as Tolerated Discharge Data Primary Care Provider: Paul Lauren V Attending Provider: Edwin Paul Admit Date/Time: 07/19/18 22:45 Discharges patient from system. Discharge Date/Time: 07/20/18 17:17
== END 2018-07-20 17:17 | disposition home or self-care (01) ==
LOC: ED 22:24 → AC 07-20 08:02
PROVIDERS: Admitting Provider Internal Medicine; Emergency Provider Emergency Medicine; PCP Internal Medicine; Visit Provider Internal Medicine
DX: K59.00 Constipation, unspecified (principal); R10.9 Unspecified abdominal pain; G30.9 Alzheimer's disease, unspecified; F02.80 Dementia in other diseases classified elsewhere, unspecified severity, without behavioral disturbance, psychotic disturbance, mood disturbance, and anxiety; J44.9 Chronic obstructive pulmonary disease, unspecified; G47.33 Obstructive sleep apnea (adult) (pediatric); I25.10 Atherosclerotic heart disease of native coronary artery without angina pectoris; Z95.1 Presence of aortocoronary bypass graft; G89.4 Chronic pain syndrome
CPT/HCPCS: 36415; 36591; 71045; 74022; 74176; 80053; 81003; 83605; 83690; 84145; 85025; 85610; 85730; 87040; 87077; 87086; 87186; 87400; 96361; 96365; 96368; 99284; G0378; J1650; J2543; J3370

== ENCOUNTER → 2018-09-20 14:06 | Outpatient (CLI) | payer OTHER, SELFPAY ==
[2018-07-20 00:11] VITALS: BMI 28.4
--- NOTE | 2018-09-20 14:09 | DI.RAD.S_ITS ---
PROCEDURE: XR TOE RT MIN 2V INDICATIONS: Pain at medial aspect right great toe MTP joint TECHNIQUE: One view of right foot and 2 views of right great toe were acquired. COMPARISON: None. FINDINGS: Bones: There is moderate hallux valgus. 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 No acute fracture or dislocation. Mild first interphalangeal joint osteoarthritis is seen. No suspicious bony lesion. Soft tissues: No suspicious soft tissue densities. IMPRESSION: Moderate hallux valgus and moderate first MTP joint osteoarthritis. Mild first interphalangeal joint osteoarthritis. No acute fracture or dislocation. No bony erosive changes. Dictated by: Asad Russo M.D. on 09/20/2018 at 14:37 Approved by: Asad Russo M.D. on 09/20/2018 at 14:38
== END ==
PROVIDERS: PCP Internal Medicine; Visit Provider Physician Assistant
DX: M79.674 Pain in right toe(s) (principal); M20.11 Hallux valgus (acquired), right foot; M21.611 Bunion of right foot; M19.071 Primary osteoarthritis, right ankle and foot
CPT/HCPCS: 73660

== ENCOUNTER → 2018-10-24 15:52 | Outpatient (CLI) | payer OTHER, SELFPAY ==
[2018-07-20 00:11] VITALS: BMI 28.4
--- NOTE | 2018-10-24 15:54 | DI.RAD.S_ITS ---
PROCEDURE: XR THORACIC SPINE 3V INDICATIONS: DORASALGIA TECHNIQUE: 3 views of the thoracic spine were acquired. COMPARISON: [facility], , THORACIC SPINE 3 VIEWS, 01/27/2017, 9:19. FINDINGS: Bones: Multiple vertebroplasty/kyphoplasty is again noted and grossly unchanged appearance. Remaining visualized vertebral body heights appear grossly unchanged. IMPRESSION: Overall, unchanged appearance since 01/27/17 Dictated by: Jonny Chaney M.D. on 10/24/2018 at 16:51 Approved by: Jonny Chaney M.D. on 10/24/2018 at 16:52
== END ==
PROVIDERS: PCP Internal Medicine; Visit Provider Internal Medicine
DX: M54.9 Dorsalgia, unspecified (principal)
CPT/HCPCS: 72072

== ENCOUNTER → 2018-10-26 10:54 | Oncology outpatient (ONC) | payer OTHER, SELFPAY ==
[2018-07-20 00:11] VITALS: BMI 28.4
[2018-10-26 11:42] LABS: BUN Creatinine Ratio 27.9 (6-22); Blood Urea Nitrogen 53 mg/dL (9-20); Estimated Glomerular Filt Rate 34.1 mL/min (>60)
[2018-10-26 11:44] VITALS: BP 95/54; PULSE 60; RESP 16; TEMP 36.8; O2SAT 94
--- NOTE | 2018-10-26 12:19 | PC.NURSE ---
Addendum entered by India Chinchilla R.N. 10/26/18 14:00: Halima, pharmacist spoke with someone from Dr Lauren's office. He'd like us to hold reclast today, based on his elevated creatinine/BUN. No IV fluids today. Instructed pt to go home, hydrate and Dr Lauren's office would be in contact with further instructions. Original Note: BP 95/54. Triage nurse placed call to [facility] to report elevated creatinine and blood pressure. Awaiting call back.
== END ==
LOC: ONC 10:56
PROVIDERS: PCP Internal Medicine; Visit Provider Internal Medicine
DX: M81.0 Age-related osteoporosis without current pathological fracture (principal)
CPT/HCPCS: 82565; 84520

== ENCOUNTER → 2018-11-03 09:40 | Outpatient (CLI) | payer OTHER, SELFPAY ==
[2018-07-20 00:11] VITALS: BMI 28.4
--- NOTE | 2018-11-03 | DI.NM.S_ITS ---
PROCEDURE: NM BONE SPECT RADIOPHARMACEUTICAL: 20.3 mCi Tc-99m MDP IV. INDICATIONS: Wedge compression fracture of T11-T12 vertebra, in TECHNIQUE: Delayed bone scintigrams were obtained of the region of interest 3-4 hours after intravenous administration of Tc-99m MDP. Additional tomographic (SPECT) imaging was performed and displayed in axial, coronal, and sagittal planes. COMPARISON: [facility], CR, XR THORACIC SPINE 3V, 10/24/2018, 16:04. [facility], CR, XR TOE RT MIN 2V, 09/20/2018, 14:13. [facility], CR, XR ACUTE ABDOMEN SERIES, 07/20/2018, 7:44. [facility], CT, CT ABDOMEN PELVIS WO CON, 07/19/2018, 20:02. [facility], CR, XR LUMBAR SPINE 2 OR 3 VIEWS, 11/01/2018, 8:27. FINDINGS: Tracer activity is seen within the L1 compression fracture in keeping with subacute or acute age. Photopenic defect seen at the T12 vertebral body in keeping with prior vertebroplasty. There is also minimal tracer activity seen in the T11 vertebral body.Tracer activity involving the L1 vertebral body keeping with subacute versus acute compression fracture. Tracer activity in the right paraspinal region in the sacrum/pelvis probably related to arthritis given the prominent osteophytes in this location. IMPRESSION: Tracer activity involving the L1 vertebral body, in keeping with acute versus subacute compression fracture. This would be consistent with the appearance of the vertebral bodies seen on the comparison prior CT from 07/19/18 and radiographic images from 10/24/18. Additional mild tracer uptake seen in the T11 vertebral body. No definite change in vertebral body height loss on anatomic imaging. Dictated by: Jonny Chaney M.D. on 11/03/2018 at 17:02 Approved by: Jonny Chaney M.D. on 11/03/2018 at 17:11
== END ==
PROVIDERS: PCP Internal Medicine; Visit Provider Physician Assistant
DX: S22.080A Wedge compression fracture of T11-T12 vertebra, initial encounter for closed fracture (principal)
CPT/HCPCS: 78320; A9503

== ENCOUNTER → 2018-11-16 12:00 | Outpatient (CLI) | payer OTHER, SELFPAY ==
[2018-07-20 00:11] VITALS: BMI 28.4
[2018-11-16 12:40] LABS: Add Manual Diff / Slide Review NO; Basophils Percent Auto 0.7 % (0-2); Eosinophils Percent Auto 2.4 % (2-4); Hemoglobin 13.9 g/dL (13.5-17.5); Lymphocytes Percent Auto 14.7 % (25-40); Mean Corpuscular Hemoglobin 28.3 PG (26-34); Mean Corpuscular Volume 85.9 fL (80-100); Monocytes Percent Auto 7.9 % (3-14); Neutrophils Absolute Auto 8300 /uL (1500-7000); Neutrophils Percent Auto 74.3 % (50-75); Platelet Count 195 X10^3/uL (150-400); Red Cell Distribution Width 17.1 % (11.6-14.8); White Blood Cell Count 11.2 X10^3/uL (4.5-11.0)
[2018-11-16 13:04] LABS: Blood Urea Nitrogen 36 mg/dL (9-20); Calcium 9.2 mg/dL (8.4-10.2); Carbon Dioxide 34 mmol/L (22-32); Chloride 97 mmol/L (98-107); Estimated Glomerular Filt Rate 44.8 mL/min (>60); Glucose 113 mg/dL (80-110); HEMOLYSIS < 15 (0-50); Potassium 4.1 mmol/L (3.4-5.1); Sodium 142 mmol/L (137-145)
== END ==
PROVIDERS: Family Provider Internal Medicine; PCP Internal Medicine; Visit Provider Orthopaedic Surgery
DX: Z01.818 Encounter for other preprocedural examination (principal)
CPT/HCPCS: 36415; 80048; 85025

== ENCOUNTER 2018-11-18 07:33 | Day surgery (SDC) | payer OTHER, SELFPAY ==
[2018-07-20 00:11] VITALS: BMI 28.4
[2018-11-17 15:01] VITALS: BMI 30.6
[2018-11-18] VITALS (7 sets, daily range): BP systolic 131–165; BP diastolic 69–89; PULSE 60–68; RESP 15–18; TEMP 36.2–36.7; O2SAT 93–96; BMI 30.6
--- NOTE | 2018-11-18 | DI.RAD.S_ITS ---
PROCEDURE: XR LUMBAR SPINE 2-3V INDICATIONS: L-1 KYPHOPLASTY TECHNIQUE: 8 views of the lumbar spine were acquired. COMPARISON: [facility], , L-SPINE 2-3 VIEWS, 01/27/2017, 9:19. FINDINGS: Spot fluoroscopic images demonstrate L1 kyphoplasty. There is expected intraoperative appearance. Previous vertebroplasty/kyphoplasty of the T11 and T12 vertebral bodies also noted Dictated by: Jonny Chaney M.D. on 11/18/2018 at 10:56 Approved by: Jonny Chaney M.D. on 11/18/2018 at 10:58
--- NOTE | 2018-11-18 | PATH_ITS ---
[facility] Accession Number: [id number] . 01 Material submitted: . VERTEBRAL BONE BIOPSY L1 . 02 Diagnosis: Vertebral Bone, L1, Biopsy: Remodeling bone and fibrotic marrow, consistent with clinical history of compression fracture. No evidence of malignancy. [facility]/11/21/2018 . 02 Electronically signed: . Cody Ford MD, PhD, Pathologist NPI- [id number] . 01 Gross description: . Received one formalin-filled container labeled with the patient's name and labeled vertebra bone BX L1. The specimen consists of a 0.3 x 0.2 x 0.2 cm, triplett-lockwood, rough portion of possible bone, entirely submitted in one cassette and will be placed in Decal for softening. (DC:[id number]) /FRR . 02 Pathologist provided ICD-10: S32.019S . 02 CPT . 291409 Performed at: 01 [facility] [address] [place] [address], [place], [place] [id number] MD Renato Douglas MD Phone: [phone] Performed at: 02 [facility] [address] [place], [place] [id number] MD India Ryan MD Phone: [phone]
--- NOTE | 2018-11-18 07:54 | PM.PREOP ---
Pre-operative Note Interval Note History & Physical reviewed/Exam performed by Physician: Yes Changes to H&P: No
[2018-11-18] MEDS: ALBUTEROL 2.5 MG/3 ML NEB (ADULT) INH (08:04)
--- NOTE | 2018-11-18 08:06 | PM.OP.1 ---
Operative Date/Time/Diagnoses Date of procedure: 11/18/18 Time of procedure: 09:10 Pre-op diagnosis: L1 compression fracture Back pain Post-op diagnosis: same Procedure & Clinicians Procedure: L1 kyphoplasty Same procedure as scheduled: Yes Indications: [age] year old male with intractable pain from an acute L1 compression fracture. They had failed conservative management and requested operative intervention. Risks and benefits of surgery were discussed and appropriate consents were obtained. Surgeon: Eloy Gore Click Yes if Unassisted: Yes Anesthesia Type: General Operative Notes Findings: none Closure Type: primary Specimen(s): other (L1 vertebral biopsy) Estimated Blood Loss (mL): 1 Procedure in detail: The patient was brought to the operating room and intubated on the table. They were then rolled over to the well-padded prone position. Time-out was performed. We confirmed positioning with two fluoroscopy views. The back was prepped and draped in the standard sterile fashion. Preoperative antibiotics were given. Using fluoroscopic guidance, the planned incision site was infiltrated with Marcaine with epinephrine and injected down to the entry site of the left pedicle of L1. A small stab incision was made and we advanced a Jamshiedi needle down the left pedicle into the vertebral body. A bone biopsy was harvested from this and sent to pathology. We then passed the DFine osteotome and opened it up to create a void inside the vertebral body. We then began injecting the cement. This was done with frequent fluoroscopy imaging. There was no extravasation. There was good fill in the upper half of the bone where the superior endplate had collapsed but nothing in the bottom half. I then redirected the trochar under xray guidance into the lower half of the body. We opened up with the osteotome and then began injecting lower. This filled up well and connected with the upper half. Once we had good fill of the L1 vertebral body the injection was stopped and the trocars were removed. Final x-rays were taken. The wound was cleaned. Steri-Strips and sterile dressing were placed. Patient was rolled over, extubated, and brought to recovery without complications. Complications: none Condition: stable Disposition: PACU Plan for aftercare: Outpatient. Activity as tolerated.
[2018-11-18] MEDS: LACTATED RINGERS 1,000 ML 42 ML IV (08:10)
--- NOTE | 2018-11-18 08:10 | SUR.PREOP ---
Albuterol new dose per Dr. Mcclelland given as ordered.
--- NOTE | 2018-11-18 08:17 | SUR.OPER ---
Prone on flat top of spine table, head in foam head support, gel chest rolls, gel pad under knees, pillow under lower legs, toes free of pressure, arms secured on padded arm boards at <90 degrees abduction. Safety belt at thigh.
[2018-11-18] MEDS: CEFAZOLIN 2 GM/100 ML FROZ.PIGGY IV (08:21)
[2018-11-18] MEDS: BUPIVACAINE 0.25% W/ EPI VIAL 50 ML INJ (08:54)
[2018-11-18] MEDS: fentaNYL 100 MCG/2 ML INJ 50 MCG IV ×2 (09:27→09:35)
--- NOTE | 2018-11-18 10:02 | SUR.PHASEII ---
brought in, d/c instructions discussed. vss, dressing remains c/d/i. pt eating applesauce and drinking fluids.
--- NOTE | 2018-11-18 10:46 | SUR.PHASEII ---
Late entry: Pt dressed with assist of and this RN when ready. Pt left in stable condition.
== END 2018-11-18 10:23 | disposition home or self-care (01) ==
PROVIDERS: PCP Internal Medicine; Visit Provider Orthopaedic Surgery
PROC: (CPT 22514; principal; 2018-11-18 09:00)
DX: S32.010A Wedge compression fracture of first lumbar vertebra, initial encounter for closed fracture (principal); M54.9 Dorsalgia, unspecified; W01.0XXA Fall on same level from slipping, tripping and stumbling without subsequent striking against object, initial encounter; M19.90 Unspecified osteoarthritis, unspecified site; G30.9 Alzheimer's disease, unspecified; F02.80 Dementia in other diseases classified elsewhere, unspecified severity, without behavioral disturbance, psychotic disturbance, mood disturbance, and anxiety; J44.9 Chronic obstructive pulmonary disease, unspecified; I48.91 Unspecified atrial fibrillation; G47.33 Obstructive sleep apnea (adult) (pediatric); I25.10 Atherosclerotic heart disease of native coronary artery without angina pectoris; N18.9 Chronic kidney disease, unspecified; Z95.0 Presence of cardiac pacemaker; M48.00 Spinal stenosis, site unspecified; I25.2 Old myocardial infarction; E78.5 Hyperlipidemia, unspecified; Z79.01 Long term (current) use of anticoagulants; Z87.891 Personal history of nicotine dependence
CPT/HCPCS: 22514; 72100; 76000; C1776; J0690; J2704; J3010; J7613

== ENCOUNTER → 2019-02-07 14:59 | Outpatient (CLI) | payer OTHER, SELFPAY ==
[2018-07-20 00:11] VITALS: BMI 28.4
--- NOTE | 2019-02-07 | DI.RAD.S_ITS ---
PROCEDURE: XR CHEST 2V INDICATIONS: COUGH TECHNIQUE: 2 views of the chest were acquired. COMPARISON: [facility], CR, XR ACUTE ABDOMEN SERIES, 07/20/2018, 7:44. None. FINDINGS: Surgical changes and devices: Left-sided pacer. Median sternotomy. Lungs and pleura: Mild diffuse interstitial pulmonary opacity is present, as before. No pleural effusions or pneumothorax. Mediastinum: Mediastinal contours are normal. Heart size is enlarged. Bones and chest wall: No suspicious bony abnormalities. Soft tissues appear unremarkable. IMPRESSION: Mild chronic appearing interstitial lung disease. No definite acute process. Dictated by: Eric Leonardo M.D. on 02/07/2019 at 15:45 Approved by: Eric Leonardo M.D. on 02/07/2019 at 15:45
== END ==
PROVIDERS: PCP Internal Medicine; Visit Provider Physician Assistant
DX: R05 Cough (principal); J84.9 Interstitial pulmonary disease, unspecified
CPT/HCPCS: 71046

== ENCOUNTER → 2019-03-28 12:38 | Outpatient (CLI) | payer OTHER, SELFPAY ==
[2018-07-20 00:11] VITALS: BMI 28.4
--- NOTE | 2019-03-28 | DI.RAD.S_ITS ---
PROCEDURE: XR THORACIC SPINE 3V INDICATIONS: BACK PAIN TECHNIQUE: 3 views of the thoracic spine were acquired. COMPARISON: [facility], CR, XR CHEST 2V, 02/07/2019, 15:19. [facility], CR, XR THORACIC SPINE 3V, 10/24/2018, 16:04. FINDINGS: Bones: Multiple thoracic and lumbar vertebral plasties are seen. No change in vertebral body heights, since 02/07/19. Cervical spondylosis and facet arthropathy noted. Multilevel thoracic degenerative endplate sclerosis and spurring. Diffuse facet arthropathy. Soft tissues: No paravertebral stripe thickening. IMPRESSION: No definite new compression fracture identified. Redemonstration of multiple thoracic and lumbar spine vertebroplasties, unchanged. Dictated by: Jonny Chaney M.D. on 03/28/2019 at 13:39 Approved by: Jonny Chaney M.D. on 03/28/2019 at 13:41
--- NOTE | 2019-03-28 | DI.RAD.S_ITS ---
PROCEDURE: XR LUMBAR SPINE 2-3V INDICATIONS: BACK PAIN TECHNIQUE: 3 views of the lumbar spine were acquired. COMPARISON: [facility], CR, XR LUMBAR SPINE 2 OR 3 VIEWS, 11/01/2018, 8:27. [facility], CR, XR LUMBAR SPINE 2-3V, 11/18/2018, 8:39. FINDINGS: Bones: No fracture or focal osseous destruction. T8, T11 T12 and L1 vertebroplasties. Multilevel degenerative endplate sclerosis and spurring. Diffuse facet arthropathy. Moderate to severe narrowing of the lumbar disc spaces uniformly. This appears unchanged. Soft tissues: Overlying bowel gas pattern is normal. No suspicious soft tissue calcifications. Scattered vascular calcifications seen in the aorta. 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 Otherwise, no interval change. Dictated by: Jonny Chaney M.D. on 03/28/2019 at 13:20 Approved by: Jonny Chaney M.D. on 03/28/2019 at 13:23
== END ==
PROVIDERS: Family Provider Orthopaedic Surgery; PCP Internal Medicine; Visit Provider Internal Medicine
DX: M54.9 Dorsalgia, unspecified (principal); M51.36 Other intervertebral disc degeneration, lumbar region; M47.812 Spondylosis without myelopathy or radiculopathy, cervical region; M47.814 Spondylosis without myelopathy or radiculopathy, thoracic region
CPT/HCPCS: 72072; 72100

== ENCOUNTER 2019-07-11 15:01 | Emergency (ER) | payer OTHER, SELFPAY ==
[2018-07-20 00:11] VITALS: BMI 28.4
[2019-07-11 15:05] VITALS: BP 113/49; PULSE 65; RESP 15; TEMP 36.8; O2SAT 94
--- NOTE | 2019-07-11 15:23 | ED.ABDPAIN ---
HPI - Abdominal Pain General Chief Complaint: Abdominal Pain Stated Complaint: abdominal pain Time Seen by Provider: 07/11/19 15:07 Source: patient and family ( and son) Mode of arrival: wheelchair Limitations: altered mental status (chronic dementia) History of Present Illness HPI narrative: This is an 84-year-old male who is brought to the emergency department by his as well as son. Patient has known dementia over the last 2 weeks his memory issues have been a little bit worse according to his and he has been weaker on had more difficulty with ambulating. She noticed yesterday when she got him in the shower with a shower chair that he appeared to have a bulge and some redness over the inguinal area on the left. Patient has not had any fevers or chills that she is aware of. He has not been nauseating or having any vomiting. He has not had a bowel movement in 2 days. He has been passing gas. She states that the area feels very hard. He was seen at the office today with his primary care who sent him moves concern for incarcerated/strangulated hernia. Patient is quite severe dementia and when discussing their goals of care other is likelihood that they would elect hospice and not surgical intervention is patient's health is very poor. Patient himself is able to express some pain he can tell me his name but then closes his eyes and continues to nap. Related Data Home Medications Medication Instructions Recorded Confirmed silodosin [Rapaflo] 4 mg PO BEDTIME #0 12/04/11 07/11/19 morphine [MS Contin] 30 mg PO BID #0 09/23/16 07/11/19 quetiapine 75 mg PO BEDTIME #0 01/18/18 07/11/19 aspirin 81 mg PO DAILY #0 01/19/18 07/11/19 potassium chloride 10 meq PO DAILY #0 01/19/18 07/11/19 donepezil 10 mg PO BEDTIME 07/19/18 07/11/19 torsemide 20 mg tablet 20 mg PO DAILY 07/19/18 07/11/19 hydrocodone-acetaminophen 1 - 2 tab PO Q6H PRN 11/18/18 07/11/19 isosorbide mononitrate 30 mg PO DAILY 11/18/18 07/11/19 prednisone 10 mg PO QDAY 11/18/18 07/11/19 tiotropium bromide [Spiriva 2 puff INHALATION DAILY 11/18/18 07/11/19 Respimat] carvedilol 3.125 mg PO BID 07/11/19 07/11/19 nitroglycerin [Nitrostat] 0.4 mg SUBLINGUAL PRN PRN 07/11/19 07/11/19 Previous Rx's Medication Instructions Recorded omeprazole 20 mg PO BID #60 09/28/11 DISABLED [employer] #1 ea 02/14/19 Allergies Allergy/AdvReac Type Severity Reaction Status Date / Time diclofenac [DICLOFENAC] Allergy Severe gi bleed Verified 07/11/19 15:10 lovastatin [LOVASTATIN] Allergy Severe HIVES AND Verified 07/11/19 15:10 FEVER terazosin [TERAZOSIN] Allergy Severe low blood Verified 07/11/19 15:10 pressure atorvastatin [ATORVASTATIN] Allergy Unknown Verified 07/11/19 15:10 rosuvastatin [ROSUVASTATIN] Allergy Unknown Verified 07/11/19 15:10 piperacillin [From Zosyn] Allergy Verified 07/11/19 18:22 tazobactam [From Zosyn] Allergy Verified 07/11/19 18:22 Review of Systems Review of Systems ROS Unobtainable: All systems reviewed & are unremarkable except as noted in HPI and below Constitutional Denies chills, Denies fever(s), Denies lethargy and Denies weakness Cardiovascular Denies chest pain and Denies dyspnea Respiratory Denies chest congestion, Denies cough and Denies dyspnea Gastrointestinal Gastrointestinal: Reports abdominal pain (left lower inguinal area), Denies change in bowel habits, Reports constipation (no BM x 2 days, is having flatus), Denies excessive flatus, Denies diarrhea, Denies nausea and Denies vomiting Genitourinary Denies hematuria, Denies difficulty urinating, Denies flank pain, Denies scrotal swelling, Denies testicular pain, Denies urinary frequency, Denies urinary hesitancy, Denies urinary incontinence and Denies urinary urgency Musculoskeletal Reports back pain (chronic, severe osteoarthritis) Neurologic Denies weakness [facility] Medical History Pancreatitis, acute (Acute) Compression fracture of thoracic vertebra (Acute) Intractable back pain (Acute) COPD (chronic obstructive pulmonary disease) (Acute) Abdominal pain (Acute) Pneumonia (Acute) CHF (congestive heart failure) (Acute) Respiratory failure with hypoxia (Acute) Alzheimer's dementia (Acute) Aortic stenosis (Acute) Atrial fibrillation and flutter (Acute) BPH (benign prostatic hyperplasia) (Acute) CAD (coronary artery disease) (Acute) Chronic back pain (Acute) Chronic renal failure (Acute) Colon polyp (Acute) Confusion (Acute) GI bleed (Acute) HTN (hypertension) (Acute) Hyperlipidemia (Acute) Lung injury (Acute) Osteoarthritis (Acute) Pacemaker (Acute) Prostatitis (Acute) Sigmoid diverticulitis (Acute) Surgical History H/O aortic valve replacement (Acute) H/O repair of rotator cuff (Acute) History of arthroplasty of right knee (Acute) Hx of kyphoplasty (Acute) No pertinent past surgical history (Acute) S/P CABG x 3 (Acute) Social History household members: spouse Smoking Status: Former smoker alcohol intake: current Social History household members: spouse Smoking Status: Former smoker alcohol intake: current Exam Narrative Exam Narrative: GENERAL: Alert and oriented x one, well-nourished, well-appearing elderly male in mild distress HEENT: Head normocephalic, atraumatic, EOMI, pupils reactive, face symmetric, moist mucous membranes NECK: Supple, full range of motion CARDIOVASCULAR: Regular rate and rhythm without murmurs, rubs or gallops. RESPIRATORY: Breath sounds equal bilaterally, no wheezes rales or rhonchi. ABDOMEN: Soft, nontender. Normoactive bowel sounds all 4 quadrants. No guarding or rebound, rigidity, no mass. Patient has swelling of left inguinal area with hard mass, no no fluctuance, not reducible,, patient has some induration and erythema over the area. Mildly tender. : No CVA tenderness. Male: normal external examination, no penile discharge or lesions, testicles non-tender, no inguinal hernias noted. EXTREMITIES: Normal range of motion, no clubbing or edema. Neurovascularly intact NEUROLOGICAL: Cranial nerves II through XII grossly intact. Moving all extremities SKIN: Warm, dry, no petechiae, no rashes or lesions. Initial Vital Signs Initial Vital Signs: Vital Signs Temperature 98.3 F 07/11/19 15:05 Pulse Rate 65 07/11/19 15:05 Respiratory Rate 15 07/11/19 15:05 Blood Pressure 113/49 L 07/11/19 15:05 Pulse Oximetry 94 07/11/19 15:05 Course Orders Ordered: ED Orders 07/11/19 15:34 CT abdomen pelvis w con Stat 07/11/19 15:50 Complete Blood Count AUTO DIFF Stat Comprehensive Metabolic Panel Stat Lactate (Lactic Acid) Stat Lipase Stat Procalcitonin Stat 07/11/19 17:14 Blood Culture Stat Discontinued Medications Diphenhydramine HCl (Benadryl) 50 mg IV NOW ONE Stop: 07/11/19 18:09 Last Admin: 07/11/19 18:10 Dose: 50 mg Sodium Chloride (Normal Saline 0.9%) 1,000 mls @ 1,000 mls/hr IV BOLUS ONE Stop: 07/11/19 16:31 Last Infusion: 07/11/19 17:38 Dose: 0 mls/hr Admin: 07/11/19 16:02 Dose: 1,000 mls/hr Piperacillin/Tazobactam/Dextrose (Zosyn) 3.375 gm in 50 mls @ 100 mls/hr IV NOW ONE Stop: 07/11/19 17:19 Last Infusion: 07/11/19 18:00 Dose: 0 mls/hr Admin: 07/11/19 17:38 Dose: 100 mls/hr Sodium Chloride (Normal Saline 0.9%) 500 mls @ 1,000 mls/hr IV BOLUS ONE Stop: 07/11/19 18:50 Last Infusion: 07/11/19 18:50 Dose: 0 mls/hr Admin: 07/11/19 18:22 Dose: 1,000 mls/hr Methylprednisolone (Solu-Medrol 125 Mg Vial) 125 mg IV NOW ONE Stop: 07/11/19 18:17 Last Admin: 07/11/19 18:20 Dose: 125 mg Morphine Sulfate (Morphine) 4 mg IV NOW ONE Stop: 07/11/19 17:50 Last Admin: 07/11/19 17:58 Dose: 4 mg Vital Signs - 8 hr 07/11/19 15:05 07/11/19 17:00 07/11/19 18:31 Temperature 98.3 F Pulse Rate 65 60 60 Respiratory Rate 15 17 16 Blood Pressure 113/49 L Blood Pressure [Right Arm] 104/47 L 101/54 L Pulse Oximetry 94 95 94 MDM - Abdominal Pain Lab Data Attestation: I reviewed the patient's lab results. Result diagrams: 07/11/19 15:50 07/11/19 15:50 Lab Results 07/11/19 07/11/19 07/11/19 Range/Units 15:50 15:50 15:50 WBC 11.6 H (4.5-11.0) X10^3/uL RBC 3.93 L (4.5-5.9) X10^6/uL Hgb 10.4 L (13.5-17.5) g/dL Hct 32.5 L (41-53) % MCV 82.6 (80-100) fL MCH 26.6 (26-34) PG MCHC 32.2 (30-36) % RDW 16.2 H (11.6-14.8) % Plt Count 240 (150-400) X10^3/uL Neut % (Auto) 86.7 H (50-75) % Lymph % (Auto) 5.5 L (25-40) % [place] % (Auto) 7.5 (3-14) % Eos % (Auto) 0.2 L (2-4) % Baso % (Auto) 0.1 (0-2) % Neut # (Auto) 39936 H (0815-8340) /uL Lymph # (Auto) 600 L (1086-0531) /uL [place] # (Auto) 900 (0-900) /uL Eos # (Auto) 0 (0-450) /uL Baso # (Auto) 0 (0-100) /uL Sodium 138 (137-145) mmol/L Potassium 4.4 (3.4-5.1) mmol/L Chloride 90 L (98-107) mmol/L Carbon Dioxide 38 H (22-32) mmol/L BUN 51 H (9-20) mg/dL Creatinine 1.60 H (0.66-1.25) mg/dL Estimated GFR 41.5 L (>60) mL/min BUN/Creatinine Ratio 31.9 H (6-22) Glucose 156 H (80-110) mg/dL Lactate (0.7-2.1) mmol/L Calcium 8.9 (8.4-10.2) mg/dL Total Bilirubin 0.6 (0.2-1.3) mg/dL AST 44 (17-59) IU/L ALT 44 (21-72) IU/L Alkaline Phosphatase 81 (38-126) U/L Total Protein 6.8 (6.3-8.2) g/dL Albumin 3.2 L (3.5-5.0) g/dL Globulin 3.6 (1.7-4.1) g/dL Albumin/Globulin Ratio 0.9 L (1.0-2.8) Lipase 58 (23-300) U/L Procalcitonin 1.21 H (<0.5) ng/mL 07/11/19 Range/Units 15:50 WBC (4.5-11.0) X10^3/uL RBC (4.5-5.9) X10^6/uL Hgb (13.5-17.5) g/dL Hct (41-53) % MCV (80-100) fL MCH (26-34) PG MCHC (30-36) % RDW (11.6-14.8) % Plt Count (150-400) X10^3/uL Neut % (Auto) (50-75) % Lymph % (Auto) (25-40) % [place] % (Auto) (3-14) % Eos % (Auto) (2-4) % Baso % (Auto) (0-2) % Neut # (Auto) (3785-1547) /uL Lymph # (Auto) (6079-0215) /uL [place] # (Auto) (0-900) /uL Eos # (Auto) (0-450) /uL Baso # (Auto) (0-100) /uL Sodium (137-145) mmol/L Potassium (3.4-5.1) mmol/L Chloride (98-107) mmol/L Carbon Dioxide (22-32) mmol/L BUN (9-20) mg/dL Creatinine (0.66-1.25) mg/dL Estimated GFR (>60) mL/min BUN/Creatinine Ratio (6-22) Glucose (80-110) mg/dL Lactate 3.3 H (0.7-2.1) mmol/L Calcium (8.4-10.2) mg/dL Total Bilirubin (0.2-1.3) mg/dL AST (17-59) IU/L ALT (21-72) IU/L Alkaline Phosphatase (38-126) U/L Total Protein (6.3-8.2) g/dL Albumin (3.5-5.0) g/dL Globulin (1.7-4.1) g/dL Albumin/Globulin Ratio (1.0-2.8) Lipase (23-300) U/L Procalcitonin (<0.5) ng/mL Point of care testing: Urine Dip Bedside Urine Glucose Negative Bedside Urine Bilirubin - Negative Bedside Urine Ketone - Negative Urine Specific [place]anan 1.010 Bedside Urine Occult Blood - Negative Bedside Urine pH 5.5 Bedside Urine Protein - Negative Bedside Urine Urobilinogen +/- 1mg Bedside Urine Nitrite - Negative Bedside Urine Leukocytes - Negative Esterase Imaging Data CT scan - abdomen: Radiologist's impression: [place] [address] CT Scan Report Signed Patient: Emory Franco FMR#: [id number] : 6Acct:[id number] Age/Sex: 84 / MDate of Service: 07/11/19 Loc: ED Accession Number: [id number] Procedure: CT abdomen pelvis w con Ordering Provider: Kera Boyle D.O. PROCEDURE: CT ABDOMEN PELVIS W CON INDICATIONS: Left inguinale mass, redness, pain, concern incarcerated her TECHNIQUE: After the administration of intravenous contrast, 5 mm thick sections acquired from the diaphragm to the symphysis. 5 mm coronal and sagittal reformats were acquired. For radiation dose reduction, the following was used: automated exposure control, adjustment of mA and/or kV according to patient size. COMPARISON: [facility], CT, ABDOMEN/PELVIS WITH CONTRAST, 07/18/2016, 14:51. FINDINGS: Image quality: Excellent. ABDOMEN: Lung bases: Lung bases are clear. Heart size is enlarged. There is calcification of the coronary vasculature. Solid organs: Liver is normal in size and enhancement. Gallbladder is surgically absent. Biliary system is non dilated. Pancreas enhances normally. Spleen is normal in size and enhancement. No adrenal nodules. Kidneys demonstrate normal size and enhancement, without hydronephrosis. Peritoneum and bowel: Stomach and small bowel are within normal limits. There is no significant colonic distention. There is diverticulosis of the descending and sigmoid colon. There is thickening and fat stranding of the distal descending and proximal sigmoid colon. No free fluid or air. Nodes and vessels: No retroperitoneal or mesenteric adenopathy by size criteria. Aorta and inferior vena cava are normal in size. Miscellaneous: No ventral hernias. PELVIS: Genitourinary: There is fistulous connection of the left aspect of the urinary bladder to the proximal sigmoid colon. Miscellaneous: There is a multiloculated peripherally enhancing fluid and gas containing collection within the left anterior pelvic wall extending into the left inguinal canal, measuring 10 cm transverse by 13 cm craniocaudal by 5 cm anteroposterior. Superior to be in direct contact with the proximal sigmoid colon. Bones: No suspicious bony lesions. Multiple chronic compression fractures within the lumbar and lower thoracic spine which demonstrate bony cement. IMPRESSION: 1. Diverticulitis of the descending and sigmoid colon. There is an associated multiloculated abscess within the left anterior pelvic wall extending into the left inguinal canal, containing gas and fluid, and which appears to be in direct connection with the sigmoid colon. 2. Colovesical fistula. 3. Surgical consultation recommended. 4. Coronary artery disease. Dictated by: Eric Leonardo M.D. on 07/11/2019 at 17:07 Approved by: Eric Leonardo M.D. on 07/11/2019 at 17:13 MDM Narrative Medical decision making narrative: Discussed with patient and family would like it is CT as well as lab work to evaluate the patient has incarcerated/strangulated versus another cause. At this time there has already been some discussion about hospice and that patient has severe dementia and not doing surgery if he does have 1. We discussed with patient's family they are comfortable obtaining some additional information and then making that decision. Patient's CT shows a diverticulitis with a multiloculated fluid and gas containing collection left anterior pelvic wall extending into the left inguinal canal that measures 10 x 13 x 5 cm. There appears to be a fistulous connection of the left aspect of the bladder to the proximal sigmoid colon. White count of 11 which appears pretty normal for him. He is slightly more anemic than he has been in the past with 13. Patient's chloride is 90 with a CO2 of 38, BUN 51 with a creatinine of 1.6, lactate is 3.3 a glucose of 156 and LFTs are normal. Procalcitonin is 1.21. Patient has not had any particulate or fecal matter noted in urine, poc urine negative. Findings with family, they have been contemplating hospice for the patient and are unsure if they want surgical intervention with his chronic cardiac and medical issues. Patient was given initial dose of antibiotics but seemed to have reaction to it received Benadryl Solu-Medrol. With some localized erythema just proximal to the IV site. Discussed with General surgery, Dr. Conte he evaluated patient imaging, labs and patient at bedside. After extensive conversation with patients family including and daughter at bedside plan for comfort measures, no antibiotics, no surgery and admission to medicine with hospice consult. General surgery will sign off. Spoke with NIGHAT Siegel and she accepts. Decision as verfied with family that he is comfort measures, DNR/DNI. Discharge Plan Departure Patient Disposition: Admitted As Inpatient Clinical Impression: Diverticulitis, Colovesical fistula, Dementia
--- NOTE | 2019-07-11 15:34 | DI.CT.S_ITS ---
PROCEDURE: CT ABDOMEN PELVIS W CON INDICATIONS: Left inguinale mass, redness, pain, concern incarcerated her TECHNIQUE: After the administration of intravenous contrast, 5 mm thick sections acquired from the diaphragm to the symphysis. 5 mm coronal and sagittal reformats were acquired. For radiation dose reduction, the following was used: automated exposure control, adjustment of mA and/or kV according to patient size. COMPARISON: [facility], CT, ABDOMEN/PELVIS WITH CONTRAST, 07/18/2016, 14:51. FINDINGS: Image quality: Excellent. ABDOMEN: Lung bases: Lung bases are clear. Heart size is enlarged. There is calcification of the coronary vasculature. Solid organs: Liver is normal in size and enhancement. Gallbladder is surgically absent. Biliary system is non dilated. Pancreas enhances normally. Spleen is normal in size and enhancement. No adrenal nodules. Kidneys demonstrate normal size and enhancement, without hydronephrosis. Peritoneum and bowel: Stomach and small bowel are within normal limits. There is no significant colonic distention. There is diverticulosis of the descending and sigmoid colon. There is thickening and fat stranding of the distal descending and proximal sigmoid colon. No free fluid or air. Nodes and vessels: No retroperitoneal or mesenteric adenopathy by size criteria. Aorta and inferior vena cava are normal in size. Miscellaneous: No ventral hernias. PELVIS: Genitourinary: There is fistulous connection of the left aspect of the urinary bladder to the proximal sigmoid colon. Miscellaneous: There is a multiloculated peripherally enhancing fluid and gas containing collection within the left anterior pelvic wall extending into the left inguinal canal, measuring 10 cm transverse by 13 cm craniocaudal by 5 cm anteroposterior. Superior to be in direct contact with the proximal sigmoid colon. Bones: No suspicious bony lesions. Multiple chronic compression fractures within the lumbar and lower thoracic spine which demonstrate bony cement. IMPRESSION: 1. Diverticulitis of the descending and sigmoid colon. There is an associated multiloculated abscess within the left anterior pelvic wall extending into the left inguinal canal, containing gas and fluid, and which appears to be in direct connection with the sigmoid colon. 2. Colovesical fistula. 3. Surgical consultation recommended. 4. Coronary artery disease. Dictated by: Eric Leonardo M.D. on 07/11/2019 at 17:07 Approved by: Eric Leonardo M.D. on 07/11/2019 at 17:13
--- NOTE | 2019-07-11 15:41 | ED_ITS ---
HPI - Abdominal Pain General Chief Complaint: Abdominal Pain Stated Complaint: abdominal pain Time Seen by Provider: 07/11/19 15:07 Source: patient and family ( and son) Mode of arrival: wheelchair Limitations: altered mental status (chronic dementia) History of Present Illness HPI narrative: This is an 84-year-old male who is brought to the emergency department by his as well as son. Patient has known dementia over the last 2 weeks his memory issues have been a little bit worse according to his and he has been weaker on had more difficulty with ambulating. She noticed yesterday when she got him in the shower with a shower chair that he appeared to have a bulge and some redness over the inguinal area on the left. Patient has not had any fevers or chills that she is aware of. He has not been nauseating or having any vomiting. He has not had a bowel movement in 2 days. He has been passing gas. She states that the area feels very hard. He was seen at the office today with his primary care who sent him moves concern for incarcerated/strangulated hernia. Patient is quite severe dementia and when discussing their goals of care other is likelihood that they would elect hospice and not surgical intervention is patient's health is very poor. Patient himself is able to express some pain he can tell me his name but then closes his eyes and continues to nap. Related Data Home Medications Medication Instructions Recorded Confirmed silodosin [Rapaflo] 4 mg PO BEDTIME #0 12/04/11 07/11/19 morphine [MS Contin] 30 mg PO BID #0 09/23/16 07/11/19 quetiapine 75 mg PO BEDTIME #0 01/18/18 07/11/19 aspirin 81 mg PO DAILY #0 01/19/18 07/11/19 potassium chloride 10 meq PO DAILY #0 01/19/18 07/11/19 donepezil 10 mg PO BEDTIME 07/19/18 07/11/19 torsemide 20 mg tablet 20 mg PO DAILY 07/19/18 07/11/19 hydrocodone-acetaminophen 1 - 2 tab PO Q6H PRN 11/18/18 07/11/19 isosorbide mononitrate 30 mg PO DAILY 11/18/18 07/11/19 prednisone 10 mg PO QDAY 11/18/18 07/11/19 tiotropium bromide [Spiriva 2 puff INHALATION DAILY 11/18/18 07/11/19 Respimat] carvedilol 3.125 mg PO BID 07/11/19 07/11/19 nitroglycerin [Nitrostat] 0.4 mg SUBLINGUAL PRN PRN 07/11/19 07/11/19 Previous Rx's Medication Instructions Recorded omeprazole 20 mg PO BID #60 09/28/11 DISABLED [place] [employer] #1 ea 02/14/19 Allergies Allergy/AdvReac Type Severity Reaction Status Date / Time diclofenac [DICLOFENAC] Allergy Severe gi bleed Verified 07/11/19 15:10 lovastatin [LOVASTATIN] Allergy Severe HIVES AND Verified 07/11/19 15:10 FEVER terazosin [TERAZOSIN] Allergy Severe low blood Verified 07/11/19 15:10 pressure atorvastatin [ATORVASTATIN] Allergy Unknown Verified 07/11/19 15:10 rosuvastatin [ROSUVASTATIN] Allergy Unknown Verified 07/11/19 15:10 piperacillin [From Zosyn] Allergy Verified 07/11/19 18:22 tazobactam [From Zosyn] Allergy Verified 07/11/19 18:22 Review of Systems Review of Systems ROS Unobtainable: All systems reviewed & are unremarkable except as noted in HPI and below Constitutional Denies chills, Denies fever(s), Denies lethargy and Denies weakness Cardiovascular Denies chest pain and Denies dyspnea Respiratory Denies chest congestion, Denies cough and Denies dyspnea Gastrointestinal Gastrointestinal: Reports abdominal pain (left lower inguinal area), Denies change in bowel habits, Reports constipation (no BM x 2 days, is having flatus), Denies excessive flatus, Denies diarrhea, Denies nausea and Denies vomiting Genitourinary Denies hematuria, Denies difficulty urinating, Denies flank pain, Denies scrotal swelling, Denies testicular pain, Denies urinary frequency, Denies urinary hesitancy, Denies urinary incontinence and Denies urinary urgency Musculoskeletal Reports back pain (chronic, severe osteoarthritis) Neurologic Denies weakness [facility] Medical History Pancreatitis, acute (Acute) Compression fracture of thoracic vertebra (Acute) Intractable back pain (Acute) COPD (chronic obstructive pulmonary disease) (Acute) Abdominal pain (Acute) Pneumonia (Acute) CHF (congestive heart failure) (Acute) Respiratory failure with hypoxia (Acute) Alzheimer's dementia (Acute) Aortic stenosis (Acute) Atrial fibrillation and flutter (Acute) BPH (benign prostatic hyperplasia) (Acute) CAD (coronary artery disease) (Acute) Chronic back pain (Acute) Chronic renal failure (Acute) Colon polyp (Acute) Confusion (Acute) GI bleed (Acute) HTN (hypertension) (Acute) Hyperlipidemia (Acute) Lung injury (Acute) Osteoarthritis (Acute) Pacemaker (Acute) Prostatitis (Acute) Sigmoid diverticulitis (Acute) Surgical History H/O aortic valve replacement (Acute) H/O repair of rotator cuff (Acute) History of arthroplasty of right knee (Acute) Hx of kyphoplasty (Acute) No pertinent past surgical history (Acute) S/P CABG x 3 (Acute) Social History household members: spouse Smoking Status: Former smoker alcohol intake: current Social History household members: spouse Smoking Status: Former smoker alcohol intake: current Exam Narrative Exam Narrative: GENERAL: Alert and oriented x one, well-nourished, well- appearing elderly male in mild distress HEENT: Head normocephalic, atraumatic, EOMI, pupils reactive, face symmetric, moist mucous membranes NECK: Supple, full range of motion CARDIOVASCULAR: Regular rate and rhythm without murmurs, rubs or gallops. RESPIRATORY: Breath sounds equal bilaterally, no wheezes rales or rhonchi. ABDOMEN: Soft, nontender. Normoactive bowel sounds all 4 quadrants. No guarding or rebound, rigidity, no mass. Patient has swelling of left inguinal area with hard mass, no no fluctuance, not reducible,, patient has some induration and erythema over the area. Mildly tender. : No CVA tenderness. Male: normal external examination, no penile discharge or lesions, testicles non-tender, no inguinal hernias noted. EXTREMITIES: Normal range of motion, no clubbing or edema. Neurovascularly intact NEUROLOGICAL: Cranial nerves II through XII grossly intact. Moving all extremities SKIN: Warm, dry, no petechiae, no rashes or lesions. Initial Vital Signs Initial Vital Signs: Vital Signs Temperature 98.3 F 07/11/19 15:05 Pulse Rate 65 07/11/19 15:05 Respiratory Rate 15 07/11/19 15:05 Blood Pressure 113/49 L 07/11/19 15:05 Pulse Oximetry 94 07/11/19 15:05 Course Orders Ordered: ED Orders 07/11/19 15:34 CT abdomen pelvis w con Stat 07/11/19 15:50 Complete Blood Count AUTO DIFF Stat Comprehensive Metabolic Panel Stat Lactate (Lactic Acid) Stat Lipase Stat Procalcitonin Stat 07/11/19 17:14 Blood Culture Stat Discontinued Medications Diphenhydramine HCl (Benadryl) 50 mg IV NOW ONE Stop: 07/11/19 18:09 Last Admin: 07/11/19 18:10 Dose: 50 mg Sodium Chloride (Normal Saline 0.9%) 1,000 mls @ 1,000 mls/hr IV BOLUS ONE Stop: 07/11/19 16:31 Last Infusion: 07/11/19 17:38 Dose: 0 mls/hr Admin: 07/11/19 16:02 Dose: 1,000 mls/hr Piperacillin/Tazobactam/Dextrose (Zosyn) 3.375 gm in 50 mls @ 100 mls/hr IV NOW ONE Stop: 07/11/19 17:19 Last Infusion: 07/11/19 18:00 Dose: 0 mls/hr Admin: 07/11/19 17:38 Dose: 100 mls/hr Sodium Chloride (Normal Saline 0.9%) 500 mls @ 1,000 mls/hr IV BOLUS ONE Stop: 07/11/19 18:50 Last Infusion: 07/11/19 18:50 Dose: 0 mls/hr Admin: 07/11/19 18:22 Dose: 1,000 mls/hr Methylprednisolone (Solu-Medrol 125 Mg Vial) 125 mg IV NOW ONE Stop: 07/11/19 18:17 Last Admin: 07/11/19 18:20 Dose: 125 mg Morphine Sulfate (Morphine) 4 mg IV NOW ONE Stop: 07/11/19 17:50 Last Admin: 07/11/19 17:58 Dose: 4 mg Vital Signs - 8 hr 07/11/19 15:05 07/11/19 17:00 07/11/19 18:31 Temperature 98.3 F Pulse Rate 65 60 60 Respiratory Rate 15 17 16 Blood Pressure 113/49 L Blood Pressure [Right Arm] 104/47 L 101/54 L Pulse Oximetry 94 95 94 MDM - Abdominal Pain Lab Data Attestation: I reviewed the patient's lab results. Result diagrams: 07/11/19 15:50 07/11/19 15:50 Lab Results 07/11/19 07/11/19 07/11/19 Range/Units 15:50 15:50 15:50 WBC 11.6 H (4.5-11.0) X10^3/uL RBC 3.93 L (4.5-5.9) X10^6/uL Hgb 10.4 L (13.5-17.5) g/dL Hct 32.5 L (41-53) % MCV 82.6 (80-100) fL MCH 26.6 (26-34) PG MCHC 32.2 (30-36) % RDW 16.2 H (11.6-14.8) % Plt Count 240 (150-400) X10^3/uL Neut % (Auto) 86.7 H (50-75) % Lymph % (Auto) 5.5 L (25-40) % [place] % (Auto) 7.5 (3-14) % Eos % (Auto) 0.2 L (2-4) % Baso % (Auto) 0.1 (0-2) % Neut # (Auto) 22715 H (5697-6914) /uL Lymph # (Auto) 600 L (8198-9709) /uL [place] # (Auto) 900 (0-900) /uL Eos # (Auto) 0 (0-450) /uL Baso # (Auto) 0 (0-100) /uL Sodium 138 (137-145) mmol/L Potassium 4.4 (3.4-5.1) mmol/L Chloride 90 L (98-107) mmol/L Carbon Dioxide 38 H (22-32) mmol/L BUN 51 H (9-20) mg/dL Creatinine 1.60 H (0.66-1.25) mg/dL Estimated GFR 41.5 L (>60) mL/min BUN/Creatinine Ratio 31.9 H (6-22) Glucose 156 H (80-110) mg/dL Lactate (0.7-2.1) mmol/L Calcium 8.9 (8.4-10.2) mg/dL Total Bilirubin 0.6 (0.2-1.3) mg/dL AST 44 (17-59) IU/L ALT 44 (21-72) IU/L Alkaline Phosphatase 81 (38-126) U/L Total Protein 6.8 (6.3-8.2) g/dL Albumin 3.2 L (3.5-5.0) g/dL Globulin 3.6 (1.7-4.1) g/dL Albumin/Globulin Ratio 0.9 L (1.0-2.8) Lipase 58 (23-300) U/L Procalcitonin 1.21 H (<0.5) ng/mL 07/11/19 Range/Units 15:50 WBC (4.5-11.0) X10^3/uL RBC (4.5-5.9) X10^6/uL Hgb (13.5-17.5) g/dL Hct (41-53) % MCV (80-100) fL MCH (26-34) PG MCHC (30-36) % RDW (11.6-14.8) % Plt Count (150-400) X10^3/uL Neut % (Auto) (50-75) % Lymph % (Auto) (25-40) % [place] % (Auto) (3-14) % Eos % (Auto) (2-4) % Baso % (Auto) (0-2) % Neut # (Auto) (2276-9365) /uL Lymph # (Auto) (2199-5997) /uL [place] # (Auto) (0-900) /uL Eos # (Auto) (0-450) /uL Baso # (Auto) (0-100) /uL Sodium (137-145) mmol/L Potassium (3.4-5.1) mmol/L Chloride (98-107) mmol/L Carbon Dioxide (22-32) mmol/L BUN (9-20) mg/dL Creatinine (0.66-1.25) mg/dL Estimated GFR (>60) mL/min BUN/Creatinine Ratio (6-22) Glucose (80-110) mg/dL Lactate 3.3 H (0.7-2.1) mmol/L Calcium (8.4-10.2) mg/dL Total Bilirubin (0.2-1.3) mg/dL AST (17-59) IU/L ALT (21-72) IU/L Alkaline Phosphatase (38-126) U/L Total Protein (6.3-8.2) g/dL Albumin (3.5-5.0) g/dL Globulin (1.7-4.1) g/dL Albumin/Globulin Ratio (1.0-2.8) Lipase (23-300) U/L Procalcitonin (<0.5) ng/mL Point of care testing: Urine Dip Bedside Urine Glucose Negative Bedside Urine Bilirubin - Negative Bedside Urine Ketone - Negative Urine Specific Cyril 1.010 Bedside Urine Occult Blood - Negative Bedside Urine pH 5.5 Bedside Urine Protein - Negative Bedside Urine Urobilinogen +/- 1mg Bedside Urine Nitrite - Negative Bedside Urine Leukocytes - Negative Esterase Imaging Data CT scan - abdomen: Radiologist's impression: [place] [address] CT Scan Report Signed Patient: Emory Franco FMR#: [id number] : 6Acct:[id number] Age/Sex: 84 / MDate of Service: 07/11/19 Loc: ED Accession Number: [id number] Procedure: CT abdomen pelvis w con Ordering Provider: Kera Boyle D.O. PROCEDURE: CT ABDOMEN PELVIS W CON INDICATIONS: Left inguinale mass, redness, pain, concern incarcerated her TECHNIQUE: After the administration of intravenous contrast, 5 mm thick sections acquired from the diaphragm to the symphysis. 5 mm coronal and sagittal reformats were acquired. For radiation dose reduction, the following was used: automated exposure control, adjustment of mA and/or kV according to patient size. COMPARISON: [facility], CT, ABDOMEN/PELVIS WITH CONTRAST, 07/18/2016, 14:51. FINDINGS: Image quality: Excellent. ABDOMEN: Lung bases: Lung bases are clear. Heart size is enlarged. There is calcification of the coronary vasculature. Solid organs: Liver is normal in size and enhancement. Gallbladder is surgically absent. Biliary system is non dilated. Pancreas enhances normally. Spleen is normal in size and enhancement. No adrenal nodules. Kidneys demonstrate normal size and enhancement, without hydronephrosis. Peritoneum and bowel: Stomach and small bowel are within normal limits. There is no significant colonic distention. There is diverticulosis of the descending and sigmoid colon. There is thickening and fat stranding of the distal descending and proximal sigmoid colon. No free fluid or air. Nodes and vessels: No retroperitoneal or mesenteric adenopathy by size cri teria. Aorta and inferior vena cava are normal in size. Miscellaneous: No ventral hernias. PELVIS: Genitourinary: There is fistulous connection of the left aspect of the urinary bladder to the proximal sigmoid colon. Miscellaneous: There is a multiloculated peripherally enhancing fluid and gas containing collection within the left anterior pelvic wall extending into the left inguinal canal, measuring 10 cm transverse by 13 cm craniocaudal by 5 cm anteroposterior. Superior to be in direct contact with the proximal sigmoid colon. Bones: No suspicious bony lesions. Multiple chronic compression fractures within the lumbar and lower thoracic spine which demonstrate bony cement. IMPRESSION: 1. Diverticulitis of the descending and sigmoid colon. There is an associated multiloculated abscess within the left anterior pelvic wall extending into the left inguinal canal, containing gas and fluid, and which appears to be in direct connection with the sigmoid colon. 2. Colovesical fistula. 3. Surgical consultation recommended. 4. Coronary artery disease. Dictated by: Eric Leonardo M.D. on 07/11/2019 at 17:07 Approved by: Eric Leonardo M.D. on 07/11/2019 at 17:13 MDM Narrative Medical decision making narrative: Discussed with patient and family would like it is CT as well as lab work to evaluate the patient has incarcerated/strangulated versus another cause. At this time there has already been some discussion about hospice and that patient has severe dementia and not doing surgery if he does have 1. We discussed with patient's family they are comfortable obtaining some additional information and then making that decision. Patient's CT shows a diverticulitis with a multiloculated fluid and gas containing collection left anterior pelvic wall extending into the left inguinal canal that measures 10 x 13 x 5 cm. There appears to be a fistulous connection of the left aspect of the bladder to the proximal sigmoid colon. White count of 11 which appears pretty normal for him. He is slightly more anemic than he has been in the past with 13. Patient's chloride is 90 with a CO2 of 38, BUN 51 with a creatinine of 1.6, lactate is 3.3 a glucose of 156 and LFTs are normal. Procalcitonin is 1.21. Patient has not had any particulate or fecal matter noted in urine, poc urine negative. Findings with family, they have been contemplating hospice for the patient and are unsure if they want surgical intervention with his chronic cardiac and medical issues. Patient was given initial dose of antibiotics but seemed to have reaction to it received Benadryl Solu-Medrol. With some localized erythema just proximal to the IV site. Discussed with General surgery, Dr. Conte he evaluated patient imaging, labs and patient at bedside. After extensive conversation with patients family including and daughter at bedside plan for comfort measures, no antibi otics, no surgery and admission to medicine with hospice consult. General surgery will sign off. Spoke with NIGHAT Siegel and she accepts. Decision as verfied with family that he is comfort measures, DNR/DNI. Discharge Plan Departure Patient Disposition: Admitted As Inpatient Clinical Impression: Diverticulitis, Colovesical fistula, Dementia
[2019-07-11] MEDS: SODIUM CHLORIDE 0.9% 1,000 ML 1000 ML IV (16:02)
[2019-07-11 16:06] LABS: Add Manual Diff / Slide Review NO; Basophils Absolute Auto 0 /uL (0-100); Basophils Percent Auto 0.1 % (0-2); Eosinophils Absolute Auto 0 /uL (0-450); Eosinophils Percent Auto 0.2 % (2-4); Hematocrit 32.5 % (41-53); Hemoglobin 10.4 g/dL (13.5-17.5); Lymphocytes Absolute Auto 600 /uL (1100-4500); Lymphocytes Percent Auto 5.5 % (25-40); Mean Corpuscular HGB Conc 32.2 % (30-36); Mean Corpuscular Hemoglobin 26.6 PG (26-34); Mean Corpuscular Volume 82.6 fL (80-100); Monocytes Absolute Auto 900 /uL (0-900); Monocytes Percent Auto 7.5 % (3-14); Neutrophils Absolute Auto 10000 /uL (1500-7000); Neutrophils Percent Auto 86.7 % (50-75); Platelet Count 240 X10^3/uL (150-400); Red Blood Cell Count 3.93 X10^6/uL (4.5-5.9); Red Cell Distribution Width 16.2 % (11.6-14.8); White Blood Cell Count 11.6 X10^3/uL (4.5-11.0)
[2019-07-11 16:39] LABS: Lactate (Lactic Acid) 3.3 mmol/L (0.7-2.1)
[2019-07-11 16:40] LABS: Alanine Aminotransferase 44 IU/L (21-72); Albumin 3.2 g/dL (3.5-5.0); Albumin Globulin Ratio 0.9 (1.0-2.8); Alkaline Phosphatase 81 U/L (38-126); Aspartate Aminotransferase 44 IU/L (17-59); BUN Creatinine Ratio 31.9 (6-22); Bilirubin Total 0.6 mg/dL (0.2-1.3); Blood Urea Nitrogen 51 mg/dL (9-20); Calcium 8.9 mg/dL (8.4-10.2); Carbon Dioxide 38 mmol/L (22-32); Chloride 90 mmol/L (98-107); Estimated Glomerular Filt Rate 41.5 mL/min (>60); Globulin 3.6 g/dL (1.7-4.1); Glucose 156 mg/dL (80-110); HEMOLYSIS < 15 (0-50); Lipase 58 U/L (23-300); Potassium 4.4 mmol/L (3.4-5.1); Sodium 138 mmol/L (137-145); Total Protein 6.8 g/dL (6.3-8.2)
[2019-07-11 16:42] LABS: Procalcitonin 1.21 ng/mL (<0.5)
[2019-07-11 17:00] VITALS: BP 104/47; PULSE 60; RESP 17; O2SAT 95
[2019-07-11] MEDS: PIPERACILLIN-TAZO 3.375 GM/50 ML FROZ.PIGGY IV (17:38)
[2019-07-11] MEDS: MORPHINE 4 MG/ML INJ IV (17:58)
[2019-07-11 18:00] LABS: Reflexed Lactate in 2 Hours Y
[2019-07-11] MEDS: diphenhydrAMINE 50 MG/ML VIAL IV (18:10)
--- NOTE | 2019-07-11 18:17 | PC.NURSE ---
Patient developed an itchy rash on left arm where IV Zosyn was infusing. Spreading quickly around circumference of the arm. Stopped Zosyn infusion immediately and notified provider. Administered a 500mL NaCl bolus of fluid along with the ordered Benadryl and Solu Medrol. Pt becoming less agitated and itchy.
[2019-07-11] MEDS: methylPREDNISolone 125 MG/2 ML VIAL IV (18:20)
[2019-07-11] MEDS: SODIUM CHLORIDE 0.9% 500 ML 1000 ML IV (18:22)
--- NOTE | 2019-07-11 18:23 | PM.CN ---
History of Present Illness Date Patient Seen: 07/11/19 Time Patient Seen: 19:25 Chief complaint: abdominal pain Reason for consult: Very large diverticular abscess eroding through abdominal wall Narrative: 84-year-old man with severe dementia, COPD, renal failure, status post 2 three-vessel CABG coronary artery disease now presents with progressive left lower quadrant pain swelling and abdominal wall edema. Patient has been in poor health in recent years requiring 24 hour caregiving. He no longer speak spontaneously. He is unable to state his own name. In the setting patient began to more acutely decline beginning 2-3 weeks ago he did complain of left abdominal pain. With a known history of diverticulitis and a desire to avoid hospitalization he was started on 5 days of prescribed doxycycline which seemed to improve his pain. However his overall function decline, he stopped walking, he also stopped most of his speech. Did note left-sided pain. Yesterday evening he was noted by his to have a large erythematous mass developing in the left lower quadrant on his skin. He was taken to the emergency department. In the ED patient is unable to give a subjective history or to state or not whether not he has pain No fever, white blood cell count 11.6 with neutrophil predominance, creatinine 1.6, lactate 3.3, albumin 3.2, prolactin 1.2 -CT scan of the abdomen and pelvis demonstrates extensive diverticular disease -there there is an open diverticular perforation into a large abscess cavity in the left lower quadrant, this abscess cavity has eroded through the anterior abdominal wall with subcutaneous fluid and gas in the left lower quadrant. The colon appears to be open into this cavity with no detectable wall the 2 structures. 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 There is market inflammatory change around the large abscess cavity Of note patient's last colonoscopy 8 or 9 years ago, family history of colorectal cancer [facility] Medical History Pancreatitis, acute (Acute) Compression fracture of thoracic vertebra (Acute) Intractable back pain (Acute) COPD (chronic obstructive pulmonary disease) (Acute) Abdominal pain (Acute) Pneumonia (Acute) CHF (congestive heart failure) (Acute) Respiratory failure with hypoxia (Acute) Alzheimer's dementia (Acute) Aortic stenosis (Acute) Atrial fibrillation and flutter (Acute) BPH (benign prostatic hyperplasia) (Acute) CAD (coronary artery disease) (Acute) Chronic back pain (Acute) Chronic renal failure (Acute) Colon polyp (Acute) Confusion (Acute) GI bleed (Acute) HTN (hypertension) (Acute) Hyperlipidemia (Acute) Lung injury (Acute) Osteoarthritis (Acute) Pacemaker (Acute) Prostatitis (Acute) Sigmoid diverticulitis (Acute) Surgical History H/O aortic valve replacement (Acute) H/O repair of rotator cuff (Acute) History of arthroplasty of right knee (Acute) Hx of kyphoplasty (Acute) No pertinent past surgical history (Acute) S/P CABG x 3 (Acute) Social History household members: spouse Smoking Status: Former smoker alcohol intake: current Social History household members: spouse Smoking Status: Former smoker alcohol intake: current Meds Home Medications Medication Instructions Recorded Confirmed Type omeprazole 20 mg PO BID #60 09/28/11 07/11/19 Rx silodosin [Rapaflo] 4 mg PO BEDTIME #0 12/04/11 07/11/19 History morphine [MS Contin] 30 mg PO BID #0 09/23/16 07/11/19 History quetiapine 75 mg PO BEDTIME #0 01/18/18 07/11/19 History aspirin 81 mg PO DAILY #0 01/19/18 07/11/19 History potassium chloride 10 meq PO DAILY #0 01/19/18 07/11/19 History donepezil 10 mg PO BEDTIME 07/19/18 07/11/19 History torsemide 20 mg tablet 20 mg PO DAILY 07/19/18 07/11/19 History hydrocodone-acetaminophen 1 - 2 tab PO Q6H PRN 11/18/18 07/11/19 History isosorbide mononitrate 30 mg PO DAILY 11/18/18 07/11/19 History prednisone 10 mg PO QDAY 11/18/18 07/11/19 History tiotropium bromide [Spiriva 2 puff INHALATION DAILY 11/18/18 07/11/19 History Respimat] DISABLED PARKING [place]ARD #1 ea 02/14/19 07/11/19 Rx carvedilol 3.125 mg PO BID 07/11/19 07/11/19 History nitroglycerin [Nitrostat] 0.4 mg SUBLINGUAL PRN PRN 07/11/19 07/11/19 History Allergies Allergy/AdvReac Type Severity Reaction Status Date / Time diclofenac [DICLOFENAC] Allergy Severe gi bleed Verified 07/11/19 15:10 lovastatin [LOVASTATIN] Allergy Severe HIVES AND Verified 07/11/19 15:10 FEVER terazosin [TERAZOSIN] Allergy Severe low blood Verified 07/11/19 15:10 pressure atorvastatin [ATORVASTATIN] Allergy Unknown Verified 07/11/19 15:10 rosuvastatin [ROSUVASTATIN] Allergy Unknown Verified 07/11/19 15:10 piperacillin [From Zosyn] Allergy Verified 07/11/19 18:22 tazobactam [From Zosyn] Allergy Verified 07/11/19 18:22 Review of Systems Review of Systems unobtainable due to mental condition and unobtainable due to mental status Exam Vital Signs (past 8 hours): - 07/11/19 15:05 Temperature 98.3 F Pulse Rate 65 Respiratory Rate 15 Blood Pressure 113/49 L Pulse Oximetry 94 Oxygen Delivery Method Room Air Narrative Exam Narrative: Man resting comfortably -unable to state name, place, season, month -states yr as 1957 He appears chronically ill thin and malnourished -the temporal wasting HENMT Nose: nares normal Chest Chest: other (LCTAB , regular respiratory effort) Cardio Rhythm: regular rhythm GI Other: Abdomen is distended -he has an area of significant erythema in the left lower quadrant with adjacent induration, the left lower quadrant is quite tender as well as the left upper quadrant. He does not appear acutely peritoneal, without reflexive guarding, negative bed shake test Skin General: no rashes or lesions noted Neuro General: alert and awake Psych Appearance: grossly normal Affect: normal affect Objective Labs Result Diagrams: 07/11/19 15:50 07/11/19 15:50 Labs: Laboratory Results - last 24 hr 07/11/19 07/11/19 07/11/19 15:50 15:50 15:50 WBC 11.6 H RBC 3.93 L Hgb 10.4 L Hct 32.5 L MCV 82.6 MCH 26.6 MCHC 32.2 RDW 16.2 H Plt Count 240 Neut % (Auto) 86.7 H Lymph % (Auto) 5.5 L [place] % (Auto) 7.5 Eos % (Auto) 0.2 L Baso % (Auto) 0.1 Neut # (Auto) 37149 H Lymph # (Auto) 600 L [place] # (Auto) 900 Eos # (Auto) 0 Baso # (Auto) 0 Sodium 138 Potassium 4.4 Chloride 90 L Carbon Dioxide 38 H BUN 51 H Creatinine 1.60 H Estimated GFR 41.5 L BUN/Creatinine Ratio 31.9 H Glucose 156 H Lactate Calcium 8.9 Total Bilirubin 0.6 AST 44 ALT 44 Alkaline Phosphatase 81 Total Protein 6.8 Albumin 3.2 L Globulin 3.6 Albumin/Globulin Ratio 0.9 L Lipase 58 Procalcitonin 1.21 H 07/11/19 15:50 WBC RBC Hgb Hct MCV MCH MCHC RDW Plt Count Neut % (Auto) Lymph % (Auto) [place] % (Auto) Eos % (Auto) Baso % (Auto) Neut # (Auto) Lymph # (Auto) [place] # (Auto) Eos # (Auto) Baso # (Auto) Sodium Potassium Chloride Carbon Dioxide BUN Creatinine Estimated GFR BUN/Creatinine Ratio Glucose Lactate 3.3 H Calcium Total Bilirubin AST ALT Alkaline Phosphatase Total Protein Albumin Globulin Albumin/Globulin Ratio Lipase Procalcitonin Assessment & Plan Assessment & Plan narrative: 84-year-old man with end-stage severe dementia, renal failure, and severe protein calorie malnutrition presents with a diverticular rupture and an enormous abscess occupying much of the left lower quadrant and eroding through the and anterior abdominal wall into the subcutaneous tissue -there continues to be an open perforation of the colon -with fecal material widely distributed throughout the abscess cavity including the subcutaneous space. 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 Long discussion had with patient's and daughter -given contained perforation of colon -surgical option would likely involve a sigmoid resection, permanent end colostomy, and drainage of the abscess cavity. This would be a major undertaking in a patient with limited physiologic reserve. Given his end-stage dementia and multiple chronic problems -renal failure, COPD, coronary disease -the chance of a successful surgery and survival to discharge is overall low. Furthermore family and I agree this would constitute undue suffering to patient, and likely be an intervention he would not want choose for himself. Recommended Admit for comfort care and transition care to hospice, family would prefer rapid discharged home with hospice support Would not continue antibiotics If skin ruptures in left lower quadrant would place colostomy bag over wound to contain draining pus and feces General surgery will sign off
[2019-07-11 18:31] VITALS: BP 101/54; PULSE 60; RESP 16; O2SAT 94
[2019-07-11 19:00] VITALS: BP 99/56; PULSE 60; RESP 17; O2SAT 96
--- NOTE | 2019-07-11 19:39 | P.CONS_ITS ---
History of Present Illness Date Patient Seen: 07/11/19 Time Patient Seen: 19:25 Chief complaint: abdominal pain Reason for consult: Very large diverticular abscess eroding through abdominal wall Narrative: 84-year-old man with severe dementia, COPD, renal failure, status post 2 three-vessel CABG coronary artery disease now presents with progressive left lower quadrant pain swelling and abdominal wall edema. Patient has been in poor health in recent years requiring 24 hour caregiving. He no longer speak spontaneously. He is unable to state his own name. In the setting patient began to more acutely decline beginning 2-3 weeks ago he did complain of left abdominal pain. With a known history of diverticulitis and a desire to avoid hospitalization he was started on 5 days of prescribed doxycycline which seemed to improve his pain. However his overall function decline, he stopped walking, he also stopped most of his speech. Did note left-sided pain. Yesterday evening he was noted by his to have a large erythematous mass developing in the left lower quadrant on his skin. He was taken to the emergency department. In the ED patient is unable to give a subjective history or to state or not whether not he has pain No fever, white blood cell count 11.6 with neutrophil predominance, creatinine 1.6, lactate 3.3, albumin 3.2, prolactin 1.2 -CT scan of the abdomen and pelvis demonstrates extensive diverticular disease -there there is an open diverticular perforation into a large abscess cavity in the left lower quadrant, this abscess cavity has eroded through the anterior abdominal wall with subcutaneous fluid and gas in the left lower quadrant. The colon appears to be open into this cavity with no detectable wall the 2 structures. 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 There is market inflammatory change around the large abscess cavity Of note patient's last colonoscopy 8 or 9 years ago, family history of colorectal cancer [facility] Medical History Pancreatitis, acute (Acute) Compression fracture of thoracic vertebra (Acute) Intractable back pain (Acute) COPD (chronic obstructive pulmonary disease) (Acute) Abdominal pain (Acute) Pneumonia (Acute) CHF (congestive heart failure) (Acute) Respiratory failure with hypoxia (Acute) Alzheimer's dementia (Acute) Aortic stenosis (Acute) Atrial fibrillation and flutter (Acute) BPH (benign prostatic hyperplasia) (Acute) CAD (coronary artery disease) (Acute) Chronic back pain (Acute) Chronic renal failure (Acute) Colon polyp (Acute) Confusion (Acute) GI bleed (Acute) HTN (hypertension) (Acute) Hyperlipidemia (Acute) Lung injury (Acute) Osteoarthritis (Acute) Pacemaker (Acute) Prostatitis (Acute) Sigmoid diverticulitis (Acute) Surgical History H/O aortic valve replacement (Acute) H/O repair of rotator cuff (Acute) History of arthroplasty of right knee (Acute) Hx of kyphoplasty (Acute) No pertinent past surgical history (Acute) S/P CABG x 3 (Acute) Social History household members: spouse Smoking Status: Former smoker alcohol intake: current Social History household members: spouse Smoking Status: Former smoker alcohol intake: current Meds Home Medications Medication Instructions Recorded Confirmed Type omeprazole 20 mg PO BID #60 09/28/11 07/11/19 Rx silodosin [Rapaflo] 4 mg PO BEDTIME #0 12/04/11 07/11/19 History morphine [MS Contin] 30 mg PO BID #0 09/23/16 07/11/19 History quetiapine 75 mg PO BEDTIME #0 01/18/18 07/11/19 History aspirin 81 mg PO DAILY #0 01/19/18 07/11/19 History potassium chloride 10 meq PO DAILY #0 01/19/18 07/11/19 History donepezil 10 mg PO BEDTIME 07/19/18 07/11/19 History torsemide 20 mg tablet 20 mg PO DAILY 07/19/18 07/11/19 History hydrocodone-acetaminophen 1 - 2 tab PO Q6H PRN 11/18/18 07/11/19 History isosorbide mononitrate 30 mg PO DAILY 11/18/18 07/11/19 History prednisone 10 mg PO QDAY 11/18/18 07/11/19 History tiotropium bromide [Spiriva 2 puff INHALATION DAILY 11/18/18 07/11/19 History Respimat] DISABLED P[place] #1 ea 02/14/19 07/11/19 Rx carvedilol 3.125 mg PO BID 07/11/19 07/11/19 History nitroglycerin [Nitrostat] 0.4 mg SUBLINGUAL PRN PRN 07/11/19 07/11/19 History Allergies Allergy/AdvReac Type Severity Reaction Status Date / Time diclofenac [DICLOFENAC] Allergy Severe gi bleed Verified 07/11/19 15:10 lovastatin [LOVASTATIN] Allergy Severe HIVES AND Verified 07/11/19 15:10 FEVER terazosin [TERAZOSIN] Allergy Severe low blood Verified 07/11/19 15:10 pressure atorvastatin [ATORVASTATIN] Allergy Unknown Verified 07/11/19 15:10 rosuvastatin [ROSUVASTATIN] Allergy Unknown Verified 07/11/19 15:10 piperacillin [From Zosyn] Allergy Verified 07/11/19 18:22 tazobactam [From Zosyn] Allergy Verified 07/11/19 18:22 Review of Systems Review of Systems unobtainable due to mental condition and unobtainable due to mental status Exam Vital Signs (past 8 hours): - 07/11/19 15:05 Temperature 98.3 F Pulse Rate 65 Respiratory Rate 15 Blood Pressure 113/49 L Pulse Oximetry 94 Oxygen Delivery Method Room Air Narrative Exam Narrative: Man resting comfortably -unable to state name, place, season, month -states yr as 1957 He appears chronically ill thin and malnourished -the temporal wasting HENMT Nose: nares normal Chest Chest: other (LCTAB , regular respiratory effort) Cardio Rhythm: regular rhythm GI Other: Abdomen is distended -he has an area of significant erythema in the left lower quadrant with adjacent induration, the left lower quadrant is quite tender as well as the left upper quadrant. He does not appear acutely peritoneal, w ithout reflexive guarding, negative bed shake test Skin General: no rashes or lesions noted Neuro General: alert and awake Psych Appearance: grossly normal Affect: normal affect Objective Labs Result Diagrams: 07/11/19 15:50 07/11/19 15:50 Labs: Laboratory Results - last 24 hr 07/11/19 07/11/19 07/11/19 15:50 15:50 15:50 WBC 11.6 H RBC 3.93 L Hgb 10.4 L Hct 32.5 L MCV 82.6 MCH 26.6 MCHC 32.2 RDW 16.2 H Plt Count 240 Neut % (Auto) 86.7 H Lymph % (Auto) 5.5 L [place] % (Auto) 7.5 Eos % (Auto) 0.2 L Baso % (Auto) 0.1 Neut # (Auto) 32765 H Lymph # (Auto) 600 L [place] # (Auto) 900 Eos # (Auto) 0 Baso # (Auto) 0 Sodium 138 Potassium 4.4 Chloride 90 L Carbon Dioxide 38 H BUN 51 H Creatinine 1.60 H Estimated GFR 41.5 L BUN/Creatinine Ratio 31.9 H Glucose 156 H Lactate Calcium 8.9 Total Bilirubin 0.6 AST 44 ALT 44 Alkaline Phosphatase 81 Total Protein 6.8 Albumin 3.2 L Globulin 3.6 Albumin/Globulin Ratio 0.9 L Lipase 58 Procalcitonin 1.21 H 07/11/19 15:50 WBC RBC Hgb Hct MCV MCH MCHC RDW Plt Count Neut % (Auto) Lymph % (Auto) [place] % (Auto) Eos % (Auto) Baso % (Auto) Neut # (Auto) Lymph # (Auto) [place] # (Auto) Eos # (Auto) Baso # (Auto) Sodium Potassium Chloride Carbon Dioxide BUN Creatinine Estimated GFR BUN/Creatinine Ratio Glucose Lactate 3.3 H Calcium Total Bilirubin AST ALT Alkaline Phosphatase Total Protein Albumin Globulin Albumin/Globulin Ratio Lipase Procalcitonin Assessment & Plan Assessment & Plan narrative: 84-year-old man with end-stage severe dementia, renal failure, and severe protein calorie malnutrition presents with a diverticular rupture and an enormous abscess occupying much of the left lower quadrant and eroding through the and anterior abdominal wall into the subcutaneous tissue -there continues to be an open perforation of the colon - with fecal material widely distributed throughout the abscess cavity including the subcutaneous space. 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 Long discussion had with patient's and daughter -given contained perf oration of colon -surgical option would likely involve a sigmoid resection, permanent end colostomy, and drainage of the abscess cavity. This would be a major undertaking in a patient with limited physiologic reserve. Given his end- stage dementia and multiple chronic problems -renal failure, COPD, coronary disease -the chance of a successful surgery and survival to discharge is overall low. Furthermore family and I agree this would constitute undue suffering to patient, and likely be an intervention he would not want choose for himself. Recommended Admit for comfort care and transition care to hospice, family would prefer rapid discharged home with hospice support Would not continue antibiotics If skin ruptures in left lower quadrant would place colostomy bag over wound to contain draining pus and feces General surgery will sign off
== END 2019-07-11 20:00 | disposition home or self-care (01) ==
LOC: ED 19:07 → AC 19:47 → ED 20:06
PROVIDERS: Emergency Provider Emergency Medicine; Family Provider Orthopaedic Surgery; PCP Internal Medicine
DX: K57.92 Diverticulitis of intestine, part unspecified, without perforation or abscess without bleeding (principal); N32.1 Vesicointestinal fistula; F03.90 Unspecified dementia, unspecified severity, without behavioral disturbance, psychotic disturbance, mood disturbance, and anxiety
CPT/HCPCS: 36415; 36591; 74177; 80053; 81003; 83605; 83690; 84145; 85025; 87040; 96361; 96365; 96375; 99283; 99285; J1200; J2270; J2543; J2930; Q9967